=== PATIENT | female | born 1995 | race Caucasian/White ===

== ENCOUNTER 2024-11-14 11:37 | Outpatient (AMB) | payer BC, SELFPAY ==
[2024-11-14 11:45] VITALS: BP 115/72; PULSE 81; RESP 16; TEMP 36.2; O2SAT 99; BMI 30.4
--- NOTE | 2024-11-14 11:45 | OBCLNT_ITS ---
Vital Signs 11/14/24 11:45 Height 1.57 m Height Method Stated Weight 75.466 kg Weight Measurement Method Standing Scale BMI 30.4 BP 115/72 Blood Pressure Source Automatic Cuff Blood Pressure Location Left Upper Arm Position Sitting Respiration 16 Pulse 81 Pulse Source Monitor Temp 97.2 F Temp Source Oral Pulse Oximetry (%) 99 Oxygen Delivery Method Room Air Allergies/Home Meds Allergies & Medications Allergies No Known Allergies Allergy (Verified 11/14/24 11:47) Medication Reconciliation No Known Home Medications 11/14/24 [History Confirmed 11/14/24] Intake Visit Data Collection New Patient or Established: New Patient (never been to [facility]) Reason for Visit:: New OB visit Seen by Clinical Staff ONLY (RN/MA): No Holistic Health Practitioner Required: No Do You Feel Safe at Home: Yes Authorities Contacted: N/A PCP or OBGYN visit in last 3 months: Yes Hx Now: Yes Are you currently on any form of Control: No Pain Present Currently: No Pain Scale Used: Licona-Bernal/Numerical Pain scale:: 0 Smoking Status Smoking Status: Never smoker Questionnaires Covid-19 Vaccine Questionnaire Has patient been vacinated for Covid-19 Have you been vacinated for Covid-19: Yes PHQ-9 PHQ-2 Over the last 2 weeks, how often have you been bothered by any of the following problems? 1. Little interest or pleasure in doing things: not at all 2. Feeling down, depressed, or hopeless: not at all Total score: 0 PHQ-9 3. Trouble falling or staying asleep, or sleeping too much: Not at all 4. Feeling tired or having little energy: Not at all 5. Poor appetite or overeating: Not at all 6. Feeling bad about yourself - or that you are a failure or have let yourself or your family down: Not at all 7. Trouble concentrating on things, such as reading the newspaper or watching television: Not at all 8. Moving or speaking so slowly that other people could have noticed? - Or the opposite - being so fidgety or restless that you have been moving around a lot more than usual: not at all 9. Thoughts that you would be better off or of hurting yourself in some way: Not at all Total score: 0 If you checked off any problems, how difficult have these problems made it for you to do your work, take care of things at home, or get along with other people?: not difficult at all Source: Developed by Drs. Murphy Mcelroy, Vera Flynn, Sanju Porter and colleagues, with an educational chaya from [employer]. Depression screen completed yes Social History Living Situation History Marital Status: Lives With: Family Housing: House Tobacco History Smoking Status: Never smoker Alcohol History Alcohol Intake: Never Domestic Abuse History Do You Feel Safe at Home: Yes Past Medical History Past Medical History Have you ever been diagnosed with any of the following: Neurological Problems Seizures: No Epilepsy: No Migraine: No Cardiology Problems Cardiac Arrhythmia: No Heart Murmur: No Deep Vein Thrombosis: No Hypertension: No Respiratory Problems Asthma: No Pulmonary Embolism: No Stomache/Intestinal Problems Celiac Disease: No Gall Bladder Disease: No Irritable Bowel: No Gastroesophageal Reflux Disease: No Genital/Urinary Problems Renal Disease: No Kidney Stones: No Reproductive Problems Endometriosis: No Fibroids: No Genital Herpes: No Gonorrhea: No Pelvic Inflammatory Disease: No Polycystic Ovarian Syndrome: No Previous Pregnancies: Yes (CS x 3 in the past.) Musculoskeletal Problems Arthritis: No Rheumatoid Arthritis: No Head,Eye,Nose,Throat Problems Glaucoma: No Endocrine Problems Diabetes Mellitus Type 2: No Hyperthyroidism: No Hypothyroidism: No Systemic Lupus Erythematosus: No Blood Problems Anemia: No Psychologic Problems Depression: No Anxiety: No Attention Deficit Disorder: No Other Problems Hospitalization: Yes (For childbirth x 3) Autoimmune Disease: No Blood Transfusions: No Surgical History Appendectomy: No Bariatric Surgery: No Additional Surgical History: CS x 3 in past History of Present Illness HPI Narrative Patient is a 29-year-old -0-0-3 history of vaginal delivery x 3 in the past presents for a new OB appointment she is 6 to 7 weeks with a due date 07/03/2025. She has 3 children at home. Her son Binh is 16, her daughter Radha is 8 and her youngest daughter is 3 she denies any problems this no complications with her other deliveries. She she used to be a patient of mine in [place]. OB Initial Visit Menstrual History Menstrual reliability: definite Flow: normal Menstrual regularity: regular Monthly: Yes Age at menarche: 10 On control pills at conception: No Associated symptoms (LMP): Reports fatigue and breast tenderness OB History : 4 Para: 3 Hx # Pregnancies: 0 Hx Total # of Abortions (Spontaneous & Elective): 0 # of Living Children: 3 Delivery History 1st : Child's name: Jacquse date: 12/11/08 sex: male Gestational age at delivery (weeks): 40 Delivery type: weight (lbs): 3175.147 g History of depression before or after : No 2nd : Child's name: Jenna date: 11/20/16 sex: female Gestational age at delivery (weeks): 39 Delivery type: weight (lbs): 3628.739 g History of depression before or after : No 3rd : date: 08/12/21 sex: female Gestational age at delivery (weeks): 39 Delivery type: weight (lbs): 3175.147 g History of depression before or after : No Infection History & Risk Evaluation History of STDs: none HIV risk evaluation: low risk Hepatitis B risk evaluation: low risk Patient or partner has history of Genital Herpes: No Varicella/chicken pox status: immunized Genetic Screening & History Genetic Screening/Teratology Counseling - Includes patient, baby's father, or anyone in either family with: 1. Patient's age 35 years or older as of estimated date of delivery: No 2. Thalassemia (Saudi Arabian, South Korean, Mediterranean, or Background); MCV less than 80: No 3. Neural Tube Defect (Meningomyelocele, Spina Bifida, or Anencephaly): No 4. Congenital Heart Defect: No 5. Down Syndrome: No 6. Tip-Sachs (Ashkenazi Jehovah'S Witness, Cajun, Romanian Honduran): No 7. Omayra Disease (Ashkenazi Jehovah'S Witness): No 8. Familial Dysautonomia (Ashkenazi Jehovah'S Witness): No 9. Sickle Cell Disease or Trait (): No 10. Hemophilia or other blood disorders: No 11. Muscular Dystrophy: No 12. Cystic Fibrosis: No 13. [place]'s Chorea: No 14. Mental Retardation/Autism: No 15. Other inherited genetic or chromosomal disorder: No 16. Maternal Metabolic Disorder (EG,TYPE 1 Diabetes, PKU): No 17. Patient or baby's father had a child with defects not listed above: No 18. Recurrent loss or a stillbirth: No 19. Medications (including supplements, vitamins, herbs or otc drugs)/illicit/recreational drugs/alcohol since last menstrual period: No 20. Any other: No Infection History 1. Live with someone with TB or exposed to TB: No 2. Rash or viral illness since last menstrual period: No 3. Hepatitis B,C: No Other (see comments) Source: [employer] Review of Systems Review of Systems Narrative Review of Systems: Patient feels fatigue and breast tenderness no severe nausea no vaginal bleeding Systems Reviewed: All systems reviewed, normal except as documented Constitutional Constitutional: Reports fatigue Endocrine Endocrine: Reports fatigue Exam General Limitations: no limitations General Appearance: alert, in no apparent distress, comfortable, cooperative and well groomed Neck Neck exam: Present normal inspection, full ROM and trachea midline Chest Chest inspection: Present normal inspection and symmetric chest wall rise Resp Respiratory exam: Present normal lung sounds bilaterally Card Cardiovascular exam: Present regular rate, normal rhythm and normal heart sounds Abdominal Abdominal exam: Present soft and normal bowel sounds Extremities Extremities exam: Present normal inspection and full ROM Psych Psychiatric exam: Present normal affect and normal mood Skin Skin exam: Present warm, dry, intact and normal color Assessment & Plan Diagnosis / Problem List (1) : Status: Acute Qualifiers: Weeks of gestation: less than 8 weeks Qualified Code(s): Z3A.01 - Less than 8 weeks gestation of (2) Previous delivery affecting , antepartum: Status: Acute Plan: Repeat at 38 to 39 weeks consider tubal ligation Additional Plan Follow Up: 4 Weeks 4 Weeks Office Procedures OB Clinic LOC & Office Proc's Nursing/Assessment Patient Status: Initial/New Patient OB Clinic Nursing Assessment: BP Monitoring, Medication Reconciliation, Update PMH in EMR and Vital Signs OB Clinic Coordination of Care: Consent,records obtained, informed consent, Education Simp Pt/Fam, Lab and Imaging orders and Staff clarify orders New Patient Charge New Patient Point Assignment: [id number] New Patient Point Charge: SENIOR SHIPPING CLERK Level 3 ([id number]) Bedside Ultrasounds US Transvaginal at bedside: Yes (Transvaginal ultrasound performed CRL 1.15 cm. +FHTS EDC 07/01/25)
== END 2024-11-14 12:16 | disposition home or self-care (01) ==
LOC: HODSOBC 11:37
PROVIDERS: Supervising Provider Obstetrics & Gynecology; Visit Provider Obstetrics & Gynecology
DX: O09.291 Supervision of pregnancy with other poor reproductive or obstetric history, first trimester (principal); O34.219 Maternal care for unspecified type scar from previous cesarean delivery; Z3A.01 Less than 8 weeks gestation of pregnancy
CPT/HCPCS: 76817; 99203; G0463

== ENCOUNTER 2024-12-14 08:55 | Outpatient (AMB) | payer BC, SELFPAY ==
--- NOTE | 2024-12-14 08:56 | OBCLNT_ITS ---
Vital Signs 12/14/24 09:03 Height 1.57 m Height Method Measured Weight 75.013 kg Weight Measurement Method Standing Scale BMI 30.4 BP 119/82 Blood Pressure Source Automatic Cuff Blood Pressure Location Left Upper Arm Position Sitting Respiration 16 Pulse 87 Pulse Source Monitor Temp 97.9 F Temp Source Oral Pulse Oximetry (%) 99 Oxygen Delivery Method Room Air Allergies/Home Meds Allergies & Medications Allergies No Known Allergies Allergy (Verified 12/14/24 09:04) Medication Reconciliation No Known Home Medications 11/14/24 [History Confirmed 12/14/24] Intake Visit Data Collection New Patient or Established: Established Patient (seen at [facility] within 3 years) Reason for Visit:: care Seen by Clinical Staff ONLY (RN/MA): No Claims Adjuster Supervisor Required: No Do You Feel Safe at Home: Yes Authorities Contacted: N/A PCP or OBGYN visit in last 3 months: Yes Hx Now: Yes Are you currently on any form of Control: No Last menstrual period: 09/24/24 Pain Present Currently: No Pain Scale Used: Licona-Bernal/Numerical Pain scale:: 0 Smoking Status Smoking Status: Never smoker Questionnaires Covid-19 Vaccine Questionnaire Has patient been vacinated for Covid-19 Have you been vacinated for Covid-19: Yes PHQ-9 PHQ-2 Over the last 2 weeks, how often have you been bothered by any of the following problems? 1. Little interest or pleasure in doing things: not at all 2. Feeling down, depressed, or hopeless: not at all Total score: 0 PHQ-9 3. Trouble falling or staying asleep, or sleeping too much: Not at all 4. Feeling tired or having little energy: Not at all 5. Poor appetite or overeating: Not at all 6. Feeling bad about yourself - or that you are a failure or have let yourself or your family down: Not at all 7. Trouble concentrating on things, such as reading the newspaper or watching television: Not at all 8. Moving or speaking so slowly that other people could have noticed? - Or the opposite - being so fidgety or restless that you have been moving around a lot more than usual: not at all 9. Thoughts that you would be better off or of hurting yourself in some way: Not at all Total score: 0 Source: Developed by Drs. Murphy Mcelroy, Vera Flynn, Sanju Porter and colleagues, with an educational chaya from [employer]. Depression screen completed yes Social History Living Situation History Lives With: Family Housing: House Tobacco History Smoking Status: Never smoker Alcohol History Alcohol Intake: Never Domestic Abuse History Do You Feel Safe at Home: Yes Past Medical History Past Medical History Have you ever been diagnosed with any of the following: Neurological Problems Seizures: No Epilepsy: No Migraine: No Cardiology Problems Cardiac Arrhythmia: No Heart Murmur: No Deep Vein Thrombosis: No Hypertension: No Respiratory Problems Asthma: No Pulmonary Embolism: No Pulmonary Edema: No Stomache/Intestinal Problems Celiac Disease: No Gall Bladder Disease: No Irritable Bowel: No Gastroesophageal Reflux Disease: No Genital/Urinary Problems Renal Disease: No Kidney Stones: No Reproductive Problems Endometriosis: No Fibroids: No Genital Herpes: No Gonorrhea: No Pelvic Inflammatory Disease: No Polycystic Ovarian Syndrome: No Previous Pregnancies: Yes (CS x 3 in the past.) Musculoskeletal Problems Arthritis: No Rheumatoid Arthritis: No Head,Eye,Nose,Throat Problems Glaucoma: No Endocrine Problems Diabetes Mellitus Type 2: No Hyperthyroidism: No Hypothyroidism: No Systemic Lupus Erythematosus: No Blood Problems Anemia: No Psychologic Problems Depression: No Anxiety: No Attention Deficit Disorder: No Other Problems Hospitalization: Yes (For childbirth x 3) Blood Transfusions: No Surgical History Appendectomy: No Bariatric Surgery: No OB Ultrasound Indication Indication: Size, dates, spotting and viability OB Ultrasound Ultrasound technique: transvaginal Gestational sac assessment: Presence, location, size, shape: Live intrauterine crown-rump length of 5.15 cm corresponding 11 weeks 6 days. Embryo/ Assessment 1: Cardiac activity confirmation: Yes Manderson-rump length (cm): 5.15 Visit OB Visit Log OB Flowsheet Initial Weight: 75.5 kg Date -?-?-?-?-?-?-?-?-?-?-?-?- EGA Weight Edema CTX Effacement BP Fundal ht Pres Dilation Effacement Station Visit Note Alb Glu FHR Mov 12/14/24 -?-?-?-?-?-?-?-?-?-?-?-?- 11w 4d 75.013 kg (-487.162 g) 119/82 12 Offered N IPT will have to authorize Offered NIPT will have to au thorize first trimester labs drawn with Dr. Joseph in [place] not available at visit. Offered NIPT will have to elizabeth mayen first trimester labs drawn with Dr. Rojas in [place] not available at visit. absent PATRIC Calculator Estimated Delivery Date Method Current WG Current Estimate 07/01/25 Ultrasound #1 11w 4d Other Estimates 07/01/25 LMP (Certain) 11w 4d Expected Delivery Route/Plan Patient has history of x 3. For repeat at 39 weeks. Consider BTL. Notes Visit Date: 12/14/24 Last Updated by: Vane Florian (OB Clinic)MD Offered NIPT. Will authorize. Patient is having some back pain and spotting. Ultrasound transvaginal performed today. Labs from Dr. Rojas in [place] pending. Not available at the time of visit. Assessment & Plan Diagnosis / Problem List (1) Previous delivery affecting , antepartum: Status: Acute Assessment and Plan: Patient is 11-1/2 weeks . Authorized for NIPT. She signed a release for records from Dr. Rojas at [place] for labs. Schedule repeat C- section at 39 weeks. (2) : Status: Acute Qualifiers: Weeks of gestation: less than 8 weeks Qualified Code(s): Z3A.01 - Less than 8 weeks gestation of Office Procedures OB Clinic LOC & Office Proc's Nursing/Assessment Patient Status: Established Patient OB Clinic Nursing Assessment: Medication Reconciliation, Update PMH in EMR and Vital Signs OB Clinic Coordination of Care: Complex Care and Chronic Disease 1-5, Consent,records obtained, informed consent, Education Simp Pt/Fam and Staff clarify orders Special Needs: Heart tones Miscellaneous Interventions: Blood/Urine Collection Established Patient Charge Established Patient Point Assignment: 145 Established Patient Point Charge: EP Level 4 (120-155) Bedside Ultrasounds US Transabdominal >14 weeks at bedside: Yes
[2024-12-14 09:03] VITALS: BP 119/82; PULSE 87; RESP 16; TEMP 36.6; O2SAT 99; BMI 30.4
== END 2024-12-14 09:44 | disposition home or self-care (01) ==
LOC: HODSOBC 08:55
PROVIDERS: Supervising Provider Obstetrics & Gynecology; Visit Provider Obstetrics & Gynecology
DX: O09.291 Supervision of pregnancy with other poor reproductive or obstetric history, first trimester (principal); O34.219 Maternal care for unspecified type scar from previous cesarean delivery; Z3A.11 11 weeks gestation of pregnancy; O26.851 Spotting complicating pregnancy, first trimester; O99.891 Other specified diseases and conditions complicating pregnancy; M54.9 Dorsalgia, unspecified
CPT/HCPCS: 76805; 99214; G0463

== ENCOUNTER → 2024-12-19 | Outpatient (CLI) | payer BC, SELFPAY ==
[2024-12-19 18:07] LABS: Basophils % (Auto) 0 % (0-2.5); Eosinophils # (Auto) 0.1 Thou/mm3 (0.0-0.5); Eosinophils % (Auto) 2 % (0-10); Hematocrit 37.4 % (36.0-46.0); Hemoglobin 13.1 g/dL (12.0-16.0); Immature Granulocytes % (Auto) 0 % (0-0); Immature Granulocytes Auto 0.02 Thou/mm3 (0.00-0.00); Lymphocytes # (Auto) 1.7 Thou/mm3 (1.0-4.8); Lymphocytes % (Auto) 27 % (10-50); Mean Corpuscular Hemoglobin 31.9 pg (25.0-35.0); Mean Corpuscular Volume 91 fL (80-100); Monocytes # (Auto) 0.3 Thou/mm3 (0.0-0.8); Monocytes % (Auto) 6 % (0-12); Neutrophils # (Auto) 3.9 Thou/mm3 (1.8-7.7); Neutrophils % (Auto) 65 % (37-80); Nucleated Red Blood Cell % 0 /100 WBC (0); Platelet Count 224 Thou/mm3 (140-440); RDW Standard Deviation 41.7 fL (36.4-46.3); Red Blood Count 4.11 Miln/mm3 (4.00-5.20); White Blood Count 6.1 Thou/mm3 (3.6-11.0)
[2024-12-19 18:21] LABS: Thyroid Stimulating Hormone 1.54 uIU/mL (0.55-4.78)
== END | disposition home or self-care (01) ==
PROVIDERS: Referring Provider Obstetrics & Gynecology; Visit Provider Obstetrics & Gynecology
DX: O99.019 Anemia complicating pregnancy, unspecified trimester (principal); Z3A.01 Less than 8 weeks gestation of pregnancy; R53.83 Other fatigue
CPT/HCPCS: 36415; 84443; 85025

== ENCOUNTER 2025-01-14 09:26 | Outpatient (AMB) | payer BC, SELFPAY ==
[2025-01-14 09:55] VITALS: BP 111/73; PULSE 79; RESP 16; TEMP 36.4; O2SAT 99; BMI 30.7
--- NOTE | 2025-01-14 09:57 | OBCLNT_ITS ---
Vital Signs 01/14/25 09:55 01/14/25 09:58 Height 1.57 m Height Method Stated Weight 75.807 kg Weight Measurement Method Standing Scale BMI 30.7 BP 111/73 111/73 Blood Pressure Source Automatic Cuff Blood Pressure Location Right Upper Arm Position Sitting Respiration 16 16 Pulse 79 79 Pulse Source Monitor Temp 97.6 F 97.6 F Temp Source Oral Pulse Oximetry (%) 99 99 Oxygen Delivery Method Room Air Allergies/Home Meds Allergies & Medications Allergies No Known Allergies Allergy (Verified 01/14/25 09:57) Medication Reconciliation No Known Home Medications 11/14/24 [History Confirmed 01/14/25] Intake Visit Data Collection New Patient or Established: Established Patient (seen at [facility] within 3 years) Reason for Visit:: CARE Seen by Clinical Staff ONLY (RN/MA): No Cigarette And Filter Chief Inspector Required: No Do You Feel Safe at Home: Yes Authorities Contacted: N/A PCP or OBGYN visit in last 3 months: Yes Hx Now: Yes Are you currently on any form of Control: No Pain Present Currently: No Pain Scale Used: Licona-Bernal/Numerical Pain scale:: 0 Smoking Status Smoking Status: Never smoker Questionnaires Covid-19 Vaccine Questionnaire Has patient been vacinated for Covid-19 Have you been vacinated for Covid-19: No PHQ-9 PHQ-2 Over the last 2 weeks, how often have you been bothered by any of the following problems? 1. Little interest or pleasure in doing things: not at all 2. Feeling down, depressed, or hopeless: not at all Total score: 0 PHQ-9 3. Trouble falling or staying asleep, or sleeping too much: Not at all 4. Feeling tired or having little energy: Not at all 5. Poor appetite or overeating: Not at all 6. Feeling bad about yourself - or that you are a failure or have let yourself or your family down: Not at all 7. Trouble concentrating on things, such as reading the newspaper or watching television: Not at all 8. Moving or speaking so slowly that other people could have noticed? - Or the opposite - being so fidgety or restless that you have been moving around a lot more than usual: not at all 9. Thoughts that you would be better off or of hurting yourself in some way: Not at all Total score: 0 Source: Developed by Drs. Murphy Mcelroy, Vera Flynn, Sanju Porter and colleagues, with an educational chaya from [employer]. Depression screen completed yes Social History Living Situation History Marital Status: Lives With: Family Housing: House Housing Other:: Off work on disability. 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: Past Medical History Past Medical History: No Hx Hypothyroidism, No Hx Hyperthyroidism, No Hx Hypertension, No Hx Anemia, No Hx Renal Disease, No Hx Deep Vein Thrombosis, No Hx Diabetes Mellitus Type 2 and No Hx Polycystic Ovarian Syndrome Care OB Visit Log OB Flowsheet Initial Weight: 75.5 kg Date -?-?-?-?-?-?-?-?-?-?-?-?- EGA Weight Edema CTX Effacement BP Fundal ht Pres Dilation Effacement Station Visit Note Alb Glu FHR Mov 12/14/24 -?-?-?-?-?-?-?-?-?-?-?-?- 11w 4d 75.013 kg (-487.162 g) 119/82 12 Offered N IPT will have to authorize Offered NIPT will have to elizabeth mayen first trimester labs drawn with Dr. Joseph in [place] not available at visit. Offered NIPT will have to au adriize first trimester labs drawn with Dr. Rojas in [place] not available at visit. absent 01/14/25 -?-?-?-?-?-?-?-?-?-?-?-?- 16w 0d 75.807 kg (+306.625 g) 111/73 111/ 14 No vagina l bleeding patient is on pelvic rest at home. Desires NIPT. absent PATRIC Calculator Estimated Delivery Date Method Current WG Current Estimate 07/01/25 Ultrasound #1 16w 0d Other Estimates 07/01/25 LMP (Certain) 16w 0d Expected Delivery Route/Plan Patient has history of x 3. For repeat at 39 weeks Spouse to get vasectomy. Notes Visit Date: 01/14/25 Last Updated by: Vane Florian (OB Clinic)MD Patient will call on NIPT. Need labs from Dr. Zurita in [place]. Will authorize for level 2 ultrasound for history of x 4. Visit Date: 12/14/24 Last Updated by: Vane Florian (OB Clinic)MD Offered NIPT. Will authorize. Patient is having some back pain and spotting. Ultrasound transvaginal performed today. Labs from Dr. Rojas in [place] pending. Not available at the time of visit. Office Procedures OB Clinic LOC & Office Proc's Nursing/Assessment Patient Status: Established Patient OB Clinic Nursing Assessment: Medication Reconciliation, Update PMH in EMR and Vital Signs OB Clinic Coordination of Care: Complex Care and Chronic Disease 1-5, Consent,records obtained, informed consent, Education Simp Pt/Fam, Lab and Imaging orders, Results/Orders obtained and Staff clarify orders Special Needs: Heart tones Established Patient Charge Established Patient Point Assignment: 135 Established Patient Point Charge: EP Level 4 (120-155) Assessment & Plan Diagnosis / Problem List (1) Previous delivery affecting , antepartum: Status: Acute Assessment and Plan: Previous CS x 3 Spouse to get vasectomy (2) : Status: Acute Qualifiers: Weeks of gestation: 16 weeks Qualified Code(s): Z3A.16 - 16 weeks gestation of (3) Supervision of high risk in third trimester: Status: Acute
[2025-01-14 09:58] VITALS: BP 111/73; PULSE 79; RESP 16; TEMP 36.4; O2SAT 99
== END 2025-01-14 10:38 | disposition home or self-care (01) ==
LOC: HODSOBC 09:26
PROVIDERS: Supervising Provider Obstetrics & Gynecology; Visit Provider Obstetrics & Gynecology
DX: O09.292 Supervision of pregnancy with other poor reproductive or obstetric history, second trimester (principal); O09.892 Supervision of other high risk pregnancies, second trimester; Z3A.16 16 weeks gestation of pregnancy; O34.219 Maternal care for unspecified type scar from previous cesarean delivery; M54.9 Dorsalgia, unspecified; O99.891 Other specified diseases and conditions complicating pregnancy; O26.852 Spotting complicating pregnancy, second trimester
CPT/HCPCS: 99214; G0463

== ENCOUNTER 2025-02-13 09:26 | Outpatient (AMB) | payer BC, SELFPAY ==
[2025-02-13 09:56] VITALS: BP 115/75; PULSE 80; RESP 18; TEMP 36.2; O2SAT 98; BMI 31.5
--- NOTE | 2025-02-13 09:56 | OBCLNT_ITS ---
Vital Signs 02/13/25 09:56 Height 1.57 m Height Method Stated Weight 77.734 kg Weight Measurement Method Standing Scale BMI 31.5 BP 115/75 Blood Pressure Source Automatic Cuff Blood Pressure Location Left Upper Arm Position Sitting Respiration 18 Pulse 80 Pulse Source Monitor Temp 97.2 F Temp Source Oral Pulse Oximetry (%) 98 Oxygen Delivery Method Room Air Allergies/Home Meds Allergies & Medications Allergies No Known Allergies Allergy (Verified 02/13/25 09:56) Medication Reconciliation No Known Home Medications 11/14/24 [History Confirmed 02/13/25] Intake Visit Data Collection New Patient or Established: Established Patient (seen at [facility] within 3 years) Reason for Visit:: OBC Seen by Clinical Staff ONLY (RN/MA): No Shower Attendant Required: No Do You Feel Safe at Home: Yes Authorities Contacted: N/A PCP or OBGYN visit in last 3 months: Yes Date of Last PCP or OBGYN visit: 01/14/25 Hx Now: Yes Are you currently on any form of Control: No Pain Present Currently: No Pain Scale Used: Licona-Bernal/Numerical Pain scale:: 0 Smoking Status Smoking Status: Never smoker Questionnaires Covid-19 Vaccine Questionnaire Has patient been vacinated for Covid-19 Have you been vacinated for Covid-19: No PHQ-9 PHQ-2 Over the last 2 weeks, how often have you been bothered by any of the following problems? 1. Little interest or pleasure in doing things: not at all 2. Feeling down, depressed, or hopeless: not at all Total score: 0 PHQ-9 3. Trouble falling or staying asleep, or sleeping too much: Not at all 4. Feeling tired or having little energy: Not at all 5. Poor appetite or overeating: Not at all 6. Feeling bad about yourself - or that you are a failure or have let yourself or your family down: Not at all 7. Trouble concentrating on things, such as reading the newspaper or watching television: Not at all 8. Moving or speaking so slowly that other people could have noticed? - Or the opposite - being so fidgety or restless that you have been moving around a lot more than usual: not at all 9. Thoughts that you would be better off or of hurting yourself in some way: Not at all Total score: 0 If you checked off any problems, how difficult have these problems made it for you to do your work, take care of things at home, or get along with other people?: not difficult at all Source: Developed by Drs. Murphy Mcelroy, Vera Flynn, Sanju Porter and colleagues, with an educational chaya from [employer]. Depression screen completed yes Social History Living Situation History Marital Status: Lives With: Family Housing: House Housing Other:: Off work on disability. 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 History Past Medical History: No Hx Hypothyroidism, No Hx Hyperthyroidism, No Hx Hypertension, No Hx Anemia, No Hx Renal Disease, No Hx Deep Vein Thrombosis, No Hx Diabetes Mellitus Type 2 and No Hx Polycystic Ovarian Syndrome History of Present Illness HPI Narrative The patient is a 29-year-old history of x 3 presents for care Care OB Visit Log OB Flowsheet Initial Weight: 75.5 kg Date -?-?-?-?-?-?-?-?-?-?-?-?- EGA Weight BP Alb Glu CTX Pres Fundal ht FHR Mov Dilation Station Effacement Hx Notes Visit Note 12/14/24 -?-?-?-?-?-?-?-?-?-?-?-?- 11w 4d 75.013 kg (-487.162 g) 119/82 12 absent Offered NIPT will have to authorize Offered NIPT will have to elizabeth mayen first trimester labs drawn with Dr. Joseph in [place] not available at visit. Offered NIPT will have to au thorize first trimester labs drawn with Dr. Rojas in [place] not available at visit. 01/14/25 -?-?-?-?-?--?-?-?-?-?-?-?- 16w 0d 75.807 kg (+306.625 g) 111/73 111/ 14 absent No vaginal bleeding patient is on pelvic rest at home. Desires NIPT. 02/13/25 -?-?-?-?-?-?-?-?-?-?-?-?- 20w 2d 77.734 kg (+2234.392 g) 115/75 20 active No vaginal bleeding occasional back pain and pressure. Patient is off work on modified bedrest. NIPT was not covered by insurance. Patient is awaiting level [address] Amirah SPIVEY Calculator Estimated Delivery Date Method Current WG Current Estimate 07/01/25 Ultrasound #1 20w 2d Other Estimates 07/01/25 LMP (Certain) 20w 2d Expected Delivery Route/Plan Patient has history of x 3. For repeat at 38-39 weeks Spouse to get vasectomy. Specific Issue/Plans NIPT not covered. Level 2 ultrasound ordered. Notes Visit Date: 02/13/25 Last Updated by: Vane Florian ([facility])MD Still no notes from [facility] with Dr. Zurita. 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 She has not been called yet for level 2 ultrasound I will order this. Visit Date: 01/14/25 Last Updated by: Vane Florian ([facility])MD Patient will call on NIPT. Need labs from Dr. Zurita in [place]. Will authorize for level 2 ultrasound for history of x 4. Visit Date: 12/14/24 Last Updated by: Vane Florian ([facility])MD Offered NIPT. Will authorize. Patient is having some back pain and spotting. Ultrasound transvaginal performed today. Labs from Dr. Rojas in [place] pending. Not available at the time of visit. Office Procedures OB Clinic LOC & Office Proc's Nursing/Assessment Patient Status: Established Patient OB Clinic Nursing Assessment: Medication Reconciliation, Update PMH in EMR and Vital Signs OB Clinic Coordination of Care: Education Complex Pt/Fam, Consent,records obtained, informed consent, Lab and Imaging orders, Results/Orders obtained and Staff clarify orders Special Needs: Heart tones Established Patient Charge Established Patient Point Assignment: 115 Established Patient Point Charge: EP Level 3 (80-115)
== END 2025-02-13 10:15 | disposition home or self-care (01) ==
LOC: HODSOBC 09:26
PROVIDERS: PCP Obstetrics & Gynecology; Referring Provider Obstetrics & Gynecology; Supervising Provider Obstetrics & Gynecology; Visit Provider Obstetrics & Gynecology
DX: O09.292 Supervision of pregnancy with other poor reproductive or obstetric history, second trimester (principal); Z3A.20 20 weeks gestation of pregnancy; O34.219 Maternal care for unspecified type scar from previous cesarean delivery
CPT/HCPCS: 99213; G0463

== ENCOUNTER 2025-03-18 09:20 | Outpatient (AMB) | payer BC, SELFPAY ==
--- NOTE | 2025-03-18 09:21 | OBCLNT_ITS ---
Vital Signs 03/18/25 09:28 Height 1.57 m Height Method Stated Weight 79.605 kg Weight Measurement Method Standing Scale BMI 32.3 BP 112/62 Blood Pressure Source Automatic Cuff Blood Pressure Location Left Upper Arm Position Sitting Respiration 16 Pulse 82 Pulse Source Monitor Temp 97.6 F Temp Source Oral Pulse Oximetry (%) 99 Oxygen Delivery Method Room Air Allergies/Home Meds Allergies & Medications Allergies No Known Allergies Allergy (Verified 03/18/25 09:29) Medication Reconciliation No Known Home Medications 11/14/24 [History Confirmed 03/18/25] Intake Visit Data Collection New Patient or Established: Established Patient (seen at [facility] within 3 years) Reason for Visit:: CARE Seen by Clinical Staff ONLY (RN/MA): No Farmer Vegetable Required: No Do You Feel Safe at Home: Yes Authorities Contacted: N/A PCP or OBGYN visit in last 3 months: Yes Hx Now: Yes Are you currently on any form of Control: No Pain Present Currently: Yes Pain Location: Back Pain Scale Used: Licona-Bernal/Numerical Pain scale:: 6 Smoking Status Smoking Status: Never smoker Questionnaires Covid-19 Vaccine Questionnaire Has patient been vacinated for Covid-19 Have you been vacinated for Covid-19: Yes PHQ-9 PHQ-2 Over the last 2 weeks, how often have you been bothered by any of the following problems? 1. Little interest or pleasure in doing things: not at all 2. Feeling down, depressed, or hopeless: not at all Total score: 0 PHQ-9 3. Trouble falling or staying asleep, or sleeping too much: Not at all 4. Feeling tired or having little energy: Not at all 5. Poor appetite or overeating: Not at all 6. Feeling bad about yourself - or that you are a failure or have let yourself or your family down: Not at all 7. Trouble concentrating on things, such as reading the newspaper or watching television: Not at all 8. Moving or speaking so slowly that other people could have noticed? - Or the opposite - being so fidgety or restless that you have been moving around a lot more than usual: not at all 9. Thoughts that you would be better off or of hurting yourself in some way: Not at all Total score: 0 Source: Developed by Drs. Murphy Mcelroy, Vera Flynn, Sanju Porter and colleagues, with an educational chaya from [employer]. Depression screen completed yes Social History Living Situation History Lives With: Family Housing: House Housing Other:: Off work on disability. 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 Medical History Past Medical History: No Hx Hypothyroidism, No Hx Hyperthyroidism, No Hx Hypertension, No Hx Anemia, No Hx Renal Disease, No Hx Deep Vein Thrombosis, No Hx Diabetes Mellitus Type 2 and No Hx Polycystic Ovarian Syndrome Care OB Visit Log OB Flowsheet Initial Weight: 75.5 kg Date -?-?-?-?-?-?-?-?-?-?-?-?- EGA Weight BP Alb Glu CTX Pres Fundal ht FHR Mov Dilation Station Effacement Hx Notes Visit Note 12/14/24 -?-?-?-?-?-?-?-?-?-?-?-?- 11w 4d 75.013 kg (-487.162 g) 119/82 12 absent Offered NIPT will have to authorize Offered NIPT will have to elizabeth mayen first trimester labs drawn with Dr. Joseph in [place] not available at visit. Offered NIPT will have to elizabeth rushize first trimester labs drawn with Dr. Rojas in [place] not available at visit. 01/14/25 -?-?-?-?-?-?-?-?-?-?-?-?- 16w 0d 75.807 kg (+306.625 g) 111/73 111/73 14 absent No vaginal bleeding patient is on pelvic rest at home. Desires NIPT. 02/13/25 -?-?-?-?-?-?-?-?-?-?-?-?- 20w 2d 77.734 kg (+2234.392 g) 115/75 20 active No vaginal bleeding occasional back pain and pressure. Patient is off work on modified bedrest. NIPT was not covered by insurance. Patient is awaiting level [address] Macario 03/18/25 -?-?-?-?-?-?-?-?-?-?-?-?- 25w 0d 79.605 kg (+4105.461 g) 112/62 25 active Positive movement no contractions no loss of fluids. Level 2 ultra sound scheduled 26 March. PATRIC Calculator Estimated Delivery Date Method Current WG Current Estimate 07/01/25 Ultrasound #1 25w 0d Other Estimates 07/01/25 LMP (Certain) 25w 0d Expected Delivery Route/Plan Patient has history of x 3. For repeat at 38-39 weeks Spouse to get vasectomy. Specific Issue/Plans NIPT not covered. Level 2 ultrasound ordered. Notes Visit Date: 03/18/25 Last Updated by: Vane Florian ([facility])MD Have records from [facility]. Reviewed and on chart. All were done in October 2024.. O+ /antibody screen negative /cystic fibrosis screening negativ e/ TB test negative/ hemoglobin 13/ hep C negative/ hepatitis B surface antigen negative /rubella nonimmune RPR nonreactive /HIV negative/ hemoglobin A1c 5.2/1- hour glucose elevated /3-hour glucose normal/ GC chlamydia and trichomonas negative/drug screen negative Visit Date: 02/13/25 Last Updated by: Vane Florian ([facility])MD Still no notes from [facility] with Dr. Zurita. 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 She has not been called yet for level 2 ultrasound I will order this. Visit Date: 01/14/25 Last Updated by: Vane Florian ([facility])MD Patient will call on NIPT. Need labs from Dr. Zurita in [place]. Will authorize for level 2 ultrasound for history of x 4. Visit Date: 12/14/24 Last Updated by: Vane Florian ([facility])MD Offered NIPT. Will authorize. Patient is having some back pain and spotting. Ultrasound transvaginal performed today. Labs from Dr. Rojas in [place] pending. Not available at the time of visit. Office Procedures OB Clinic LOC & Office Proc's Nursing/Assessment Patient Status: Established Patient OB Clinic Nursing Assessment: Medication Reconciliation, Update PMH in EMR and Vital Signs OB Clinic Coordination of Care: Complex Care and Chronic Disease 1-5, Consent,records obtained, informed consent, Education Simp Pt/Fam, Lab and Imaging orders, Results/Orders obtained and Staff clarify orders Special Needs: Heart tones Established Patient Charge Established Patient Point Assignment: 135 Established Patient Point Charge: EP Level 4 (120-155)
[2025-03-18 09:28] VITALS: BP 112/62; PULSE 82; RESP 16; TEMP 36.4; O2SAT 99; BMI 32.3
== END 2025-03-18 10:04 | disposition home or self-care (01) ==
LOC: HODSOBC 09:20
PROVIDERS: PCP Obstetrics & Gynecology; Referring Provider Obstetrics & Gynecology; Supervising Provider Obstetrics & Gynecology; Visit Provider Obstetrics & Gynecology
DX: O09.292 Supervision of pregnancy with other poor reproductive or obstetric history, second trimester (principal); O34.219 Maternal care for unspecified type scar from previous cesarean delivery; Z3A.25 25 weeks gestation of pregnancy; Z78.9 Other specified health status
CPT/HCPCS: 99214; G0463

== ENCOUNTER → 2025-03-29 | Outpatient (CLI) | payer BC, SELFPAY ==
[2025-03-29 13:53] LABS: Basophils # (Auto) 0.0 Thou/mm3 (0.0-0.2); Basophils % (Auto) 0 % (0-2.5); Eosinophils # (Auto) 0.1 Thou/mm3 (0.0-0.5); Eosinophils % (Auto) 2 % (0-10); Hematocrit 34.1 % (36.0-46.0); Hemoglobin 12.0 g/dL (12.0-16.0); Immature Granulocytes Auto 0.03 Thou/mm3 (0.00-0.00); Lymphocytes # (Auto) 1.6 Thou/mm3 (1.0-4.8); Lymphocytes % (Auto) 24 % (10-50); Mean Corpuscular HGB Conc 35.2 g/dl (31.0-37.0); Mean Corpuscular Hemoglobin 33.4 pg (25.0-35.0); Mean Corpuscular Volume 95 fL (80-100); Monocytes # (Auto) 0.4 Thou/mm3 (0.0-0.8); Monocytes % (Auto) 6 % (0-12); Neutrophils # (Auto) 4.5 Thou/mm3 (1.8-7.7); Neutrophils % (Auto) 67 % (37-80); Nucleated Red Blood Cell # 0.00 Thou/mm3 (0.00-0.00); Nucleated Red Blood Cell % 0 /100 WBC (0); Platelet Count 207 Thou/mm3 (140-440); RDW Standard Deviation 46.8 fL (36.4-46.3); Red Blood Count 3.59 Miln/mm3 (4.00-5.20); White Blood Count 6.7 Thou/mm3 (3.6-11.0)
[2025-03-29 14:14] LABS: Alanine Aminotransferase 11 U/L (10-49); Albumin, Serum 3.7 gm/dL (3.5-5.0); Albumin/Globulin Ratio 1.6 (1.2-2.2); Alkaline Phosphatase 66 U/L (46-116); Anion Gap 12 (7-16); Aspartate Amino Transferase 15 U/L (0-34); BUN/Creatinine Ratio 10 Ratio (12-20); Bilirubin,Total 0.3 mg/dL (0.3-1.2); Blood Urea Nitrogen 5 mg/dL (9-23); Calcium 9.0 mg/dL (8.3-10.6); Calcium (Corrected) 9.2 mg/dL (8.5-10.1); Carbon Dioxide 24.4 mMol/L (20.0-31.0); Chloride 103 mMol/L (98-107); Creatinine (Component) 0.5 mg/dL (0.6-1.3); Globulin 2.3 gm/dL (2.3-3.5); Glucose 106 mg/dL (74-106); Osmolality,Calculated 274 (275-295); Potassium 3.9 mMol/L (3.4-5.1); Sodium 139 mMol/L (136-145); Total Protein 6.0 gm/dL (5.7-8.2); eGFR > 60 See Note
[2025-04-05 17:49] LABS: Chenodeoxycholic Acid* 1.1 umol/L (< OR = 3.9); Cholic Acid* <0.5 umol/L (< OR = 2.8); Deoxycholic Acid* <0.5 umol/L (< OR = 2.3)
[2025-04-08 14:35] LABS: Total Bile Acids <1.5 umol/L (< OR = 8.3)
== END | disposition home or self-care (01) ==
PROVIDERS: Referring Provider Obstetrics & Gynecology; Visit Provider Obstetrics & Gynecology
DX: O26.642 Intrahepatic cholestasis of pregnancy, second trimester (principal)
CPT/HCPCS: 36415; 80053; 83789; 85025

== ENCOUNTER 2025-04-08 08:26 | Outpatient (AMB) | payer BC, SELFPAY ==
[2025-04-08 08:35] VITALS: BP 109/69; PULSE 79; RESP 16; TEMP 36.3; O2SAT 99; BMI 33.3
--- NOTE | 2025-04-08 08:35 | AMB.OBVISIT ---
Vital Signs 04/08/25 08:35 Height 1.57 m Height Method Stated Weight 82.27 kg Weight Measurement Method Standing Scale BMI 33.3 BP 109/69 Blood Pressure Source Automatic Cuff Blood Pressure Location Left Upper Arm Position Sitting Respiration 16 Pulse 79 Pulse Source Monitor Temp 97.4 F Temp Source Oral Pulse Oximetry (%) 99 Oxygen Delivery Method Room Air Allergies/Home Meds Allergies & Medications Allergies No Known Allergies Allergy (Verified 04/08/25 08:36) Medication Reconciliation No Known Home Medications 11/14/24 [History Confirmed 04/08/25] Intake Visit Data Collection New Patient or Established: Established Patient (seen at [facility] within 3 years) Reason for Visit:: CARE Seen by Clinical Staff ONLY (RN/MA): No Stock Preparation Supervisor Required: No Do You Feel Safe at Home: Yes Authorities Contacted: N/A PCP or OBGYN visit in last 3 months: Yes Hx Now: Yes Are you currently on any form of Control: No Pain Present Currently: Yes Pain Location: Unable to identify (PELVIC PAIN) Pain Scale Used: Licona-Bernal/Numerical Pain scale:: 5 Smoking Status Smoking Status: Never smoker Questionnaires Covid-19 Vaccine Questionnaire Has patient been vacinated for Covid-19 Have you been vacinated for Covid-19: No PHQ-9 PHQ-2 Over the last 2 weeks, how often have you been bothered by any of the following problems? 1. Little interest or pleasure in doing things: not at all 2. Feeling down, depressed, or hopeless: not at all Total score: 0 PHQ-9 3. Trouble falling or staying asleep, or sleeping too much: Not at all 4. Feeling tired or having little energy: Not at all 5. Poor appetite or overeating: Not at all 6. Feeling bad about yourself - or that you are a failure or have let yourself or your family down: Not at all 7. Trouble concentrating on things, such as reading the newspaper or watching television: Not at all 8. Moving or speaking so slowly that other people could have noticed? - Or the opposite - being so fidgety or restless that you have been moving around a lot more than usual: not at all 9. Thoughts that you would be better off or of hurting yourself in some way: Not at all Total score: 0 Source: Developed by Drs. Murphy Mcelroy, Vera Flynn, Sanju Porter and colleagues, with an educational chaya from [employer]. Depression screen completed yes Social History Living Situation History Lives With: Family Housing: House Housing Other:: Off work on disability. 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 Joseph in [place] not available at visit. Offered NIPT will have to authorize first trimester labs drawn with Dr. Rojas in [place] not available at visit. 01/14/25 <del>?</del> 16w 0d 75.807 kg (+306.625 g) 111/73 111/73 14 absent No vaginal bleeding patient is on pelvic rest at home. Desires NIPT. 02/13/25 <del>?</del> 20w 2d 77.734 kg (+2234.392 g) 115/75 20 active No vaginal bleeding occasional back pain and pressure. Patient is off work on modified bedrest. NIPT was not covered by insurance. Patient is awaiting level [address] Macario 03/18/25 <del>?</del> 25w 0d 79.605 kg (+4105.461 g) 112/62 25 active Positive movement no contractions no loss of fluids. Level 2 ultrasound scheduled 26 March. 04/08/25 <del>?</del> 28w 0d 82.27 kg (+6770.316 g) 109/69 absent 32 active +FM, No UCs, No LOF Level II US WNL on chart, GCT ordered PATRIC Calculator Estimated Delivery Date Method Current WG Current Estimate 07/01/25 Ultrasound #1 28w 0d Other Estimates 07/01/25 LMP (Certain) 28w 0d Expected Delivery Route/Plan Patient has history of x 3. For repeat at 38-39 weeks Spouse to get vasectomy. Specific Issue/Plans NIPT not covered. Level 2 ultrasound ordered. Notes Visit Date: 04/08/25 Last Updated by: Vane Florian ([facility] Clinic)MD Level II US done and WNL. Visit Date: 03/18/25 Last Updated by: Vane Florian ([facility])MD Have records from [facility]. Reviewed and on chart. All were done in October 2024.. O+ /antibody screen negative /cystic fibrosis screening negative/ TB test negative/ hemoglobin 13/ hep C negative/ hepatitis B surface antigen negative /rubella nonimmune RPR nonreactive /HIV negative/ hemoglobin A1c 5.2/1-hour glucose elevated /3-hour glucose normal/ GC chlamydia and trichomonas negative/drug screen negative Visit Date: 02/13/25 Last Updated by: Vane Florian ([facility])MD Still no notes from [facility] with Dr. Zurita. 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 She has not been called yet for level 2 ultrasound I will order this. Visit Date: 01/14/25 Last Updated by: Vane Florian ([facility])MD Patient will call on NIPT. Need labs from Dr. Zurita in [place]. Will authorize for level 2 ultrasound for history of x 4. Visit Date: 12/14/24 Last Updated by: Vane Florian ([facility])MD Offered NIPT. Will authorize. Patient is having some back pain and spotting. Ultrasound transvaginal performed today. Labs from Dr. Rojas in [place] pending. Not available at the time of visit. Office Procedures OB Clinic LOC & Office Proc's Nursing/Assessment Patient Status: Established Patient OB Clinic Nursing Assessment: Medication Reconciliation, Update PMH in EMR and Vital Signs OB Clinic Coordination of Care: Complex Care and Chronic Disease 1-5, Consent,records obtained, informed consent, Education Simp Pt/Fam, 1 Ins Authorization, Lab and Imaging orders, Results/Orders obtained and Staff clarify orders Special Needs: Heart tones Established Patient Charge Established Patient Point Assignment: 150 Established Patient Point Charge: EP Level 4 (120-155) Assessment & Plan Diagnosis / Problem List (1) : Status: Acute Qualifiers: Weeks of gestation: 28 weeks Qualified Code(s): Z3A.28 - 28 weeks gestation of (2) Supervision of high risk in third trimester: Status: Acute (3) Previous delivery affecting , antepartum: Status: Acute Assessment and Plan: For CS # $ need date. 38-39 weeks. EDC 07/01/25
== END 2025-04-08 09:20 | disposition home or self-care (01) ==
LOC: HODSOBC 08:26
PROVIDERS: PCP Obstetrics & Gynecology; Referring Provider Obstetrics & Gynecology; Supervising Provider Obstetrics & Gynecology; Visit Provider Obstetrics & Gynecology
DX: O09.293 Supervision of pregnancy with other poor reproductive or obstetric history, third trimester (principal); O34.219 Maternal care for unspecified type scar from previous cesarean delivery; Z3A.28 28 weeks gestation of pregnancy
CPT/HCPCS: 99214; G0463

== ENCOUNTER → 2025-04-08 | Outpatient (CLI) | payer BC, SELFPAY ==
[2025-04-08 12:18] LABS: Basophils # (Auto) 0.0 Thou/mm3 (0.0-0.2); Basophils % (Auto) 0 % (0-2.5); Eosinophils # (Auto) 0.1 Thou/mm3 (0.0-0.5); Eosinophils % (Auto) 1 % (0-10); Hematocrit 35.2 % (36.0-46.0); Hemoglobin 12.2 g/dL (12.0-16.0); Immature Granulocytes Auto 0.04 Thou/mm3 (0.00-0.00); Lymphocytes # (Auto) 1.7 Thou/mm3 (1.0-4.8); Lymphocytes % (Auto) 29 % (10-50); Mean Corpuscular HGB Conc 34.7 g/dl (31.0-37.0); Mean Corpuscular Hemoglobin 32.9 pg (25.0-35.0); Mean Corpuscular Volume 95 fL (80-100); Monocytes # (Auto) 0.3 Thou/mm3 (0.0-0.8); Monocytes % (Auto) 5 % (0-12); Neutrophils # (Auto) 3.7 Thou/mm3 (1.8-7.7); Neutrophils % (Auto) 64 % (37-80); Nucleated Red Blood Cell # 0.00 Thou/mm3 (0.00-0.00); Nucleated Red Blood Cell % 0 /100 WBC (0); Platelet Count 198 Thou/mm3 (140-440); RDW Standard Deviation 47.6 fL (36.4-46.3); Red Blood Count 3.71 Miln/mm3 (4.00-5.20); White Blood Count 5.9 Thou/mm3 (3.6-11.0)
[2025-04-08 12:39] LABS: Glucose,1 Hour PP 50gm Dose 163 mg/dL (80-140)
[2025-04-08 12:44] LABS: Syphilis Nonreactive (Nonreactive)
== END | disposition home or self-care (01) ==
PROVIDERS: PCP Obstetrics & Gynecology; Referring Provider Obstetrics & Gynecology; Visit Provider Obstetrics & Gynecology
DX: Z34.82 Encounter for supervision of other normal pregnancy, second trimester (principal)
CPT/HCPCS: 36415; 82950; 85025; 86780

== ENCOUNTER 2025-04-19 10:00 | Outpatient (AMB) | payer BC, SELFPAY ==
[2025-04-19 10:23] VITALS: BP 115/69; PULSE 86; RESP 18; TEMP 36.5; O2SAT 98; BMI 33.5
--- NOTE | 2025-04-19 10:23 | OBCLNT_ITS ---
Vital Signs 04/19/25 10:23 Height 1.57 m Height Method Stated Weight 82.554 kg Weight Measurement Method Standing Scale BMI 33.5 BP 115/69 Blood Pressure Source Automatic Cuff Blood Pressure Location Left Upper Arm Position Sitting Respiration 18 Pulse 86 Pulse Source Monitor Temp 97.7 F Temp Source Oral Pulse Oximetry (%) 98 Oxygen Delivery Method Room Air Allergies/Home Meds Allergies & Medications Allergies No Known Allergies Allergy (Verified 04/19/25 10:24) Medication Reconciliation No Known Home Medications 11/14/24 [History Confirmed 04/19/25] Intake Visit Data Collection New Patient or Established: Established Patient (seen at [facility] within 3 years) Reason for Visit:: CARE Seen by Clinical Staff ONLY (RN/MA): No Resident Program Specialist Required: No Do You Feel Safe at Home: Yes Authorities Contacted: N/A PCP or OBGYN visit in last 3 months: Yes Hx Now: Yes Are you currently on any form of Control: No Pain Present Currently: No Pain Scale Used: Licona-Bernal/Numerical Pain scale:: 0 Smoking Status Smoking Status: Never smoker Questionnaires Covid-19 Vaccine Questionnaire Has patient been vacinated for Covid-19 Have you been vacinated for Covid-19: Yes PHQ-9 PHQ-2 Over the last 2 weeks, how often have you been bothered by any of the following problems? 1. Little interest or pleasure in doing things: not at all 2. Feeling down, depressed, or hopeless: not at all Total score: 0 PHQ-9 3. Trouble falling or staying asleep, or sleeping too much: Not at all 4. Feeling tired or having little energy: Not at all 5. Poor appetite or overeating: Not at all 6. Feeling bad about yourself - or that you are a failure or have let yourself or your family down: Not at all 7. Trouble concentrating on things, such as reading the newspaper or watching television: Not at all 8. Moving or speaking so slowly that other people could have noticed? - Or the opposite - being so fidgety or restless that you have been moving around a lot more than usual: not at all 9. Thoughts that you would be better off or of hurting yourself in some way: Not at all Total score: 0 Source: Developed by Drs. Murphy Mcelroy, Vera Flynn, Sanju Porter and colleagues, with an educational chaya from [employer] website. Depression screen completed yes Social History Living Situation History Lives With: Family Housing: House Housing Other:: Off work on disability. 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 Medical History Past Medical History: No Hx Hypothyroidism, No Hx Hyperthyroidism, No Hx Hypertension, No Hx Anemia, No Hx Renal Disease, No Hx Deep Vein Thrombosis, No Hx Diabetes Mellitus Type 2 and No Hx Polycystic Ovarian Syndrome Care OB Visit Log OB Flowsheet Initial Weight: 75.5 kg Date -?-?-?-?-?-?-?-?-?-?-?-?- EGA Weight BP Alb Glu CTX Pres Fundal ht FHR Mov Dilation Station Effacement Hx Notes Visit Note 12/14/24 -?-?-?-?-?-?-?-?-?-?-?-?- 11w 4d 75.013 kg (-487.162 g) 119/82 12 absent Offered NIPT will have to authorize Offered NIPT will have to [facility] first trimester labs drawn with Dr. Joseph in [place] not available at visit. Offered NIPT will have to elizabeth mayen first trimester labs drawn with Dr. Rojas in [place] not available at visit. 01/14/25 -?-?-?-?-?-?-?-?-?-?-?-?- 16w 0d 75.807 kg (+306.625 g) 111/73 111/73 14 absent No vaginal bleeding patient is on pelvic rest at home. Desires NIPT. 02/13/25 -?-?-?-?-?-?-?-?-?-?-?-?- 20w 2d 77.734 kg (+2234.392 g) 115/75 20 active No vaginal bleeding occasional back pain and pressure. Patient is off work on modified bedrest. NIPT was not covered by insurance. Patient is awaiting level [address] Macario 03/18/25 -?-?-?-?-?-?-?-?-?-?-?-?- 25w 0d 79.605 kg (+4105.461 g) 112/62 25 active Positive movement no contractions no loss of fluids. Level 2 ultra sound scheduled 26 March. 04/08/25 -?-?-?-?-?-?-?-?-?-?-?-?- 28w 0d 82.27 kg (+6770.316 g) 109/69 absent 32 active +FM, No UCs, No LOF Level II US WNL on chart, GCT ordered 04/19/25 -?-?-?-?-?-?-?-?-?-?-?-?- 29w 4d 82.554 kg (+7053.811 g) 115/69 absent 30 active Good movement. No contractions no bleeding no loss of fluids Failed glucose challenge test at 163. Ordered 3-hour GTT at [facility] in [place]. PATRIC Calculator Estimated Delivery Date Method Current WG Current Estimate 07/01/25 Ultrasound #1 29w 4d Other Estimates 07/01/25 LMP (Certain) 29w 4d Expected Delivery Route/Plan Patient has history of x 3. For repeat at 38-39 weeks Spouse to get vasectomy. Specific Issue/Plans NIPT not covered. Level 2 ultrasound ordered. Notes Visit Date: 04/19/25 Last Updated by: Vane Florian ([facility])MD Failed 1 hour glucose. 163. Ordered 3-hour GTT with CBC and RPR Visit Date: 04/08/25 Last Updated by: Vane Florian ([facility])MD Level II US done and WNL. Visit Date: 03/18/25 Last Updated by: Vane Florian ([facility])MD Have records from [facility]. Reviewed and on chart. All were done in October 2024.. O+ /antibody screen negative /cystic fibrosis screening negative/ TB test negative/ hemoglobin 13/ hep C negative/ hepatitis B surface antigen negative /rubella nonimmune RPR nonreactive /HIV negative/ hemoglobin A1c 5.2/1-hour glucose elevated /3-hour glucose normal/ GC chlamydia and trichomonas negative/drug screen negative Visit Date: 02/13/25 Last Updated by: Vane Florian ([facility])MD Still no notes from [facility] with Dr. Zurita. Patient will actually go drive there and order picker her records. She has not been called yet for level 2 ultrasound I will order this. Visit Date: 01/14/25 Last Updated by: Vane Florian ([facility])MD Patient will call on NIPT. Need labs from Dr. Zurita in [place]. Will authorize for level 2 ultrasound for history of x 4. Visit Date: 12/14/24 Last Updated by: Vane Florian ([facility])MD Offered NIPT. Will authorize. Patient is having some back pain and spotting. Ultrasound transvaginal performed today. Labs from Dr. Rojas in [place] pending. Not available at the time of visit. Office Procedures OB Clinic LOC & Office Proc's Nursing/Assessment Patient Status: Established Patient OB Clinic Nursing Assessment: Medication Reconciliation, Update PMH in EMR and Vital Signs OB Clinic Coordination of Care: Complex Care and Chronic Disease 1-5, Consent,records obtained, informed consent, Education Simp Pt/Fam, Lab and Imaging orders, Results/Orders obtained and Staff clarify orders Special Needs: Heart tones Established Patient Charge Established Patient Point Assignment: 135 Established Patient Point Charge: EP Level 4 (120-155)
== END 2025-04-19 10:34 | disposition home or self-care (01) ==
LOC: HODSOBC 10:00
PROVIDERS: Supervising Provider Obstetrics & Gynecology; Visit Provider Obstetrics & Gynecology
DX: O09.893 Supervision of other high risk pregnancies, third trimester (principal); O99.810 Abnormal glucose complicating pregnancy; O09.293 Supervision of pregnancy with other poor reproductive or obstetric history, third trimester; O34.219 Maternal care for unspecified type scar from previous cesarean delivery; Z3A.29 29 weeks gestation of pregnancy
CPT/HCPCS: 99214; G0463

== ENCOUNTER 2025-04-30 10:57 | Outpatient (AMB) | payer BC, SELFPAY ==
[2025-04-30 11:20] VITALS: BP 111/71; PULSE 94; RESP 16; TEMP 36.2; O2SAT 98; BMI 33.5
--- NOTE | 2025-04-30 11:20 | OBCLNT_ITS ---
Vital Signs 04/30/25 11:20 Height 1.57 m Height Method Stated Weight 82.667 kg Weight Measurement Method Standing Scale BMI 33.5 BP 111/71 Blood Pressure Source Automatic Cuff Blood Pressure Location Left Upper Arm Position Sitting Respiration 16 Pulse 94 Pulse Source Monitor Temp 97.2 F Temp Source Oral Pulse Oximetry (%) 98 Oxygen Delivery Method Room Air Allergies/Home Meds Allergies & Medications Allergies No Known Allergies Allergy (Verified 04/30/25 11:21) Medication Reconciliation No Known Home Medications 11/14/24 [History Confirmed 04/30/25] Intake Visit Data Collection New Patient or Established: Established Patient (seen at [facility] within 3 years) Reason for Visit:: OBC Seen by Clinical Staff ONLY (RN/MA): No Range Conservationist Required: No Do You Feel Safe at Home: Yes Authorities Contacted: N/A PCP or OBGYN visit in last 3 months: Yes Date of Last PCP or OBGYN visit: 04/19/25 Hx Now: Yes Are you currently on any form of Control: No Pain Present Currently: No Pain Scale Used: Licona-Bernal/Numerical Pain scale:: 0 Smoking Status Smoking Status: Never smoker Questionnaires Covid-19 Vaccine Questionnaire Has patient been vacinated for Covid-19 Have you been vacinated for Covid-19: No PHQ-9 PHQ-2 Over the last 2 weeks, how often have you been bothered by any of the following problems? 1. Little interest or pleasure in doing things: not at all 2. Feeling down, depressed, or hopeless: not at all Total score: 0 PHQ-9 3. Trouble falling or staying asleep, or sleeping too much: Not at all 4. Feeling tired or having little energy: Not at all 5. Poor appetite or overeating: Not at all 6. Feeling bad about yourself - or that you are a failure or have let yourself or your family down: Not at all 7. Trouble concentrating on things, such as reading the newspaper or watching television: Not at all 8. Moving or speaking so slowly that other people could have noticed? - Or the opposite - being so fidgety or restless that you have been moving around a lot more than usual: not at all 9. Thoughts that you would be better off or of hurting yourself in some way: Not at all Total score: 0 If you checked off any problems, how difficult have these problems made it for you to do your work, take care of things at home, or get along with other people?: not difficult at all Source: Developed by Drs. Murphy Mcelroy, Vera Flynn, Sanju Porter and colleagues, with an educational chaya from [employer]. Depression screen completed yes Social History Living Situation History Lives With: Family Housing: House Housing Other:: Off work on disability. 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 Joseph in [place] not available at visit. Offered NIPT will have to elizabeth mayen first trimester labs drawn with Dr. Rojas in [place] not available at visit. 01/14/25 -?-?-?-?-?-?-?-?-?-?-?-?- 16w 0d 75.807 kg (+306.625 g) 111/73 111/73 14 absent No vaginal bleeding patient is on pelvic rest at home. Desires NIPT. 02/13/25 -?-?-?-?-?-?-?-?-?-?-?--?- 20w 2d 77.734 kg (+2234.392 g) 115/75 20 active No vaginal bleeding occasional back pain and pressure. Patient is off work on modified bedrest. NIPT was not covered by insurance. Patient is awaiting level [address] Macario 03/18/25 -?-?-?-?-?-?-?-?-?-?-?-?- 25w 0d 79.605 kg (+4105.461 g) 112/62 25 active Positive movement no contractions no loss of fluids. Level 2 ultra sound scheduled 26 March. 04/08/25 -?-?-?-?-?-?-?-?-?-?-?-?- 28w 0d 82.27 kg (+6770.316 g) 109/69 absent 32 active +FM, No UCs, No LOF Level II US WNL on chart, GCT ordered 04/19/25 -?-?-?-?-?-?-?-?-?-?-?-?- 29w 4d 82.554 kg (+7053.811 g) 115/69 absent 30 active Good movement. No contractions no bleeding no loss of fluids Failed glucose challenge test at 163. Ordered 3-hour GTT at [facility] in [place]. 04/30/25 -?-?-?-?-?-?-?-?-?-?-?-?- 31w 1d 82.667 kg (+7167.209 g) 111/71 absent 32 active Good movement no contractions no loss of fluids Has not done 3 -hour test yet. Sees Dr. Macario in 1 week for follow-up. PATRIC Calculator Estimated Delivery Date Method Current WG Current Estimate 07/01/25 Ultrasound #1 31w 4d Other Estimates 07/01/25 LMP (Certain) 31w 4d Expected Delivery Route/Plan Patient has history of x 3. For repeat at 38-39 weeks Spouse to get vasectomy. Declines BTL. scheduled 06/21/2025 0730 Specific Issue/Plans NIPT not covered. Level 2 ultrasound ordered. Notes Visit Date: 04/30/25 Last Updated by: Vane Florian ([facility])MD Declines BTL. Visit Date: 04/19/25 Last Updated by: Vane Florian ([facility])MD Failed 1 hour glucose. 163. Ordered 3-hour GTT with CBC and RPR Visit Date: 04/08/25 Last Updated by: Vane Florian ([facility] Clinic)MD Level II US done and WNL. Visit Date: 03/18/25 Last Updated by: Vane Florian ([facility])MD Have records from [facility]. Reviewed and on chart. All were done in October 2024.. O+ /antibody screen negative /cystic fibrosis screening negative/ TB test negative/ hemoglobin 13/ hep C negative/ hepatitis B surface antigen negative /rubella nonimmune RPR nonreactive /HIV negative/ hemoglobin A1c 5.2/1-hour glucose elevated /3-hour glucose normal/ GC chlamydia and trichomonas negative/drug screen negative Visit Date: 02/13/25 Last Updated by: Vane Florian ([facility])MD Still no notes from [facility] with Dr. Zurita. Patient will actually go drive there and cone picker her records. She has not been called yet for level 2 ultrasound I will order this. Visit Date: 01/14/25 Last Updated by: Vane Florian ([facility])MD Patient will call on NIPT. Need labs from Dr. Zurita in [place]. Will authorize for level 2 ultrasound for history of x 4. Visit Date: 12/14/24 Last Updated by: Vane Florian ([facility])MD Offered NIPT. Will authorize. Patient is having some back pain and spotting. Ultrasound transvaginal performed today. Labs from Dr. Rojas in [place] pending. Not available at the time of visit. Office Procedures OB Clinic LOC & Office Proc's Nursing/Assessment Patient Status: Established Patient OB Clinic Nursing Assessment: Medication Reconciliation, Update PMH in EMR and Vital Signs OB Clinic Coordination of Care: Education Complex Pt/Fam, Consent,records obtained, informed consent, Lab and Imaging orders and Staff clarify orders Special Needs: Heart tones Established Patient Charge Established Patient Point Assignment: 110 Established Patient Point Charge: EP Level 3 (80-115) Assessment & Plan Diagnosis / Problem List (1) Supervision of high risk in third trimester: Status: Acute (2) Previous delivery affecting , antepartum: Status: Acute Plan: Repeat #4 scheduled 06/21 at 7:30 AM (3) : Status: Acute Qualifiers: Weeks of gestation: 31 weeks Qualified Code(s): Z3A.31 - 31 weeks gestation of
== END 2025-04-30 11:38 | disposition home or self-care (01) ==
LOC: HODSOBC 10:57
PROVIDERS: Supervising Provider Obstetrics & Gynecology; Visit Provider Obstetrics & Gynecology
DX: O09.293 Supervision of pregnancy with other poor reproductive or obstetric history, third trimester (principal); Z3A.31 31 weeks gestation of pregnancy
CPT/HCPCS: 99213; G0463

== ENCOUNTER 2025-05-20 14:53 | Outpatient (AMB) | payer BC, SELFPAY ==
[2025-05-20 15:09] VITALS: BP 118/72; PULSE 78; RESP 14; TEMP 36.4; O2SAT 99; BMI 33.9
--- NOTE | 2025-05-20 15:09 | OBCLNT_ITS ---
Vital Signs 05/20/25 15:09 Height 1.57 m Height Method Stated Weight 83.688 kg Weight Measurement Method Standing Scale BMI 33.9 BP 118/72 Blood Pressure Source Automatic Cuff Blood Pressure Location Left Upper Arm Position Sitting Respiration 14 Pulse 78 Pulse Source Monitor Temp 97.6 F Temp Source Oral Pulse Oximetry (%) 99 Oxygen Delivery Method Room Air Allergies/Home Meds Allergies & Medications Allergies No Known Allergies Allergy (Verified 05/20/25 15:10) Medication Reconciliation No Known Home Medications 11/14/24 [History Confirmed 05/20/25] Intake Visit Data Collection New Patient or Established: Established Patient (seen at [facility] within 3 years) Reason for Visit:: CARE Seen by Clinical Staff ONLY (RN/MA): No Marketing Underwriter Required: No Do You Feel Safe at Home: Yes Authorities Contacted: N/A PCP or OBGYN visit in last 3 months: Yes Hx Now: Yes Are you currently on any form of Control: No Pain Present Currently: Yes Pain Location: Back Pain scale:: 7 Smoking Status Smoking Status: Never smoker Questionnaires Covid-19 Vaccine Questionnaire Has patient been vacinated for Covid-19 Have you been vacinated for Covid-19: Yes PHQ-9 PHQ-2 Over the last 2 weeks, how often have you been bothered by any of the following problems? 1. Little interest or pleasure in doing things: not at all 2. Feeling down, depressed, or hopeless: not at all Total score: 0 PHQ-9 3. Trouble falling or staying asleep, or sleeping too much: Not at all 4. Feeling tired or having little energy: Not at all 5. Poor appetite or overeating: Not at all 6. Feeling bad about yourself - or that you are a failure or have let yourself or your family down: Not at all 7. Trouble concentrating on things, such as reading the newspaper or watching television: Not at all 8. Moving or speaking so slowly that other people could have noticed? - Or the opposite - being so fidgety or restless that you have been moving around a lot more than usual: not at all 9. Thoughts that you would be better off or of hurting yourself in some way: Not at all Total score: 0 Source: Developed by Drs. Murphy L. LilibethVera licea, Sanju Porter and colleagues, with an educational chaya from [employer]. Depression screen completed yes Social History Living Situation History Lives With: Family Housing: House Housing Other:: Off work on disability. 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 Joseph in [place] not available at visit. Offered NIPT will have to elizabeth mayen first trimester labs drawn with Dr. Rojas in [place] not available at visit. 01/14/25 -?-?-?-?-?-?-?-?-?-?-?-?- 16w 0d 75.807 kg (+306.625 g) 111/73 111/73 14 absent No vaginal bleeding patient is on pelvic rest at home. Desires NIPT. 02/13/25 -?-?-?-?-?-?-?-?-?-?-?-?- 20w 2d 77.734 kg (+2234.392 g) 115/75 20 active No vaginal bleeding occasional back pain and pressure. Patient is off work on modified bedrest. NIPT was not covered by insurance. Patient is awaiting level [address] Macario 03/18/25 -?-?-?-?-?-?-?-?-?-?-?-?- 25w 0d 79.605 kg (+4105.461 g) 112/62 25 active Positive movement no contractions no loss of fluids. Level 2 ultra sound scheduled 26 March. 04/08/25 -?-?-?-?-?-?-?-?-?-?-?-?- 28w 0d 82.27 kg (+6770.316 g) 109/69 absent 32 active +FM, No UCs, No LOF Level II US WNL on chart, GCT ordered 04/19/25 -?-?-?-?-?-?-?-?-?-?-?-?- 29w 4d 82.554 kg (+7053.811 g) 115/69 absent 30 active Good movement. No contractions no bleeding no loss of fluids Failed glucose challenge test at 163. Ordered 3-hour GTT at [facility] in [place]. 04/30/25 -?-?-?-?-?-?-?-?-?-?-?-?- 31w 1d 82.667 kg (+7167.209 g) 111/71 absent 32 active Good movement no contractions no loss of fluids Has not done 3 -hour test yet. Sees Dr. Macario in 1 week for follow-up. 05/20/25 -?--?-?-?-?-?-?-?-?-?-?-?- 34w 0d 83.688 kg (+8187.792 g) 118/72 PATRIC Calculator 2 Estimated Delivery Date Method Current WG Current Estimate 07/01/25 Ultrasound #1 34w 0d Other Estimates 07/01/25 LMP (Certain) 34w 0d Expected Delivery Route/Plan Patient has history of x 2. For repeat at 38-39 weeks Spouse to get vasectomy. Signed BTL papers scheduled 06/21/2025 0730 Specific Issue/Plans NIPT not covered. Level 2 ultrasound ordered. Notes Visit Date: 05/20/25 Last Updated by: Vane Florian ([facility])MD Three hour glucose normal 05/02/2025 fasting glucose 82\153\118\72 hemoglobin 11.9 RPR negative . The patient had a follow-up ultrasound with Dr. Macario 05/07/2025 which is on the chart :baby was vertex presentation EDC by that ultrasound 07/03/2025 EFW 1930 g 4 pounds 4 ounces in the 42nd percentile FENG 10.8 Visit Date: 04/30/25 Last Updated by: Vane Florian ([facility])MD Declines BTL. Visit Date: 04/19/25 Last Updated by: Vane OlivasOB Clinic)MD Failed 1 hour glucose. 163. Ordered 3-hour GTT with CBC and RPR Visit Date: 04/08/25 Last Updated by: Vane Florian ([facility])MD Level II US done and WNL. Visit Date: 03/18/25 Last Updated by: Vane Florian ([facility])MD Have records from [facility]. Reviewed and on chart. All were done in October 2024.. O+ /antibody screen negative /cystic fibrosis screening neg ative/ TB test negative/ hemoglobin 13/ hep C negative/ hepatitis B surface antigen negative /rubella nonimmune RPR nonreactive /HIV negative/ hemoglobin A1c 5.2/1-hour glucose elevated /3-hour glucose normal/ GC chlamydia and trichomonas negative/drug screen negative Visit Date: 02/13/25 Last Updated by: Vane Florian ([facility])MD Still no notes from [facility] with Dr. Zurita. 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 She has not been called yet for level 2 ultrasound I will order this. Visit Date: 01/14/25 Last Updated by: Vane Florian ([facility] Clinic)MD Patient will call on NIPT. Need labs from Dr. Zurita in [place]. Will authorize for level 2 ultrasound for history of x 4. Visit Date: 12/14/24 Last Updated by: Vane Florian ([facility] Clinic)MD Offered NIPT. Will authorize. Patient is having some back pain and spotting. Ultrasound transvaginal performed today. Labs from Dr. Rojas in [place] pending. Not available at the time of visit. Office Procedures OB Clinic LOC & Office Proc's Nursing/Assessment Patient Status: Established Patient OB Clinic Nursing Assessment: Medication Reconciliation, Update PMH in EMR and Vital Signs OB Clinic Coordination of Care: Complex Care and Chronic Disease 1-5, Consent,records obtained, informed consent, Education Simp Pt/Fam, Lab and Imaging orders, Results/Orders obtained and Staff clarify orders Special Needs: Heart tones Established Patient Charge Established Patient Point Assignment: 135 Established Patient Point Charge: EP Level 4 (120-155)
== END 2025-05-20 16:24 | disposition home or self-care (01) ==
LOC: HODSOBC 14:53
PROVIDERS: Supervising Provider Obstetrics & Gynecology; Visit Provider Obstetrics & Gynecology
DX: O09.293 Supervision of pregnancy with other poor reproductive or obstetric history, third trimester (principal); O34.219 Maternal care for unspecified type scar from previous cesarean delivery; Z3A.34 34 weeks gestation of pregnancy
CPT/HCPCS: 99214; G0463

== ENCOUNTER 2025-06-14 09:21 | Outpatient (AMB) | payer BC, SELFPAY ==
[2025-06-14 09:31] VITALS: BP 115/76; PULSE 98; RESP 18; TEMP 36.2; O2SAT 98; BMI 35.0
--- NOTE | 2025-06-14 09:31 | OBCLNT_ITS ---
Vital Signs 06/14/25 09:31 Height 1.57 m Height Method Stated Weight 86.353 kg Weight Measurement Method Standing Scale BMI 35.0 BP 115/76 Blood Pressure Source Automatic Cuff Blood Pressure Location Left Upper Arm Position Sitting Respiration 18 Pulse 98 Pulse Source Monitor Temp 97.2 F Temp Source Oral Pulse Oximetry (%) 98 Oxygen Delivery Method Room Air Allergies/Home Meds Allergies & Medications Allergies No Known Allergies Allergy (Verified 06/14/25 09:31) Medication Reconciliation vitamins no.159-iron fumarate 28 mg-folic acid 800 mcg tablet 1 tab PO DAILY #90 tabs 05/20/25 [Rx Confirmed 06/14/25] Intake Visit Data Collection New Patient or Established: Established Patient (seen at [facility] within 3 years) Reason for Visit:: OBC Seen by Clinical Staff ONLY (RN/MA): No Transport Tech Required: No Do You Feel Safe at Home: Yes Authorities Contacted: N/A PCP or OBGYN visit in last 3 months: Yes Date of Last PCP or OBGYN visit: 06/05/25 Hx Now: Yes Are you currently on any form of Control: No Pain Present Currently: No Pain Scale Used: Licona-Bernal/Numerical Pain scale:: 0 Smoking Status Smoking Status: Never smoker Questionnaires Covid-19 Vaccine Questionnaire Has patient been vacinated for Covid-19 Have you been vacinated for Covid-19: Yes PHQ-9 PHQ-2 Over the last 2 weeks, how often have you been bothered by any of the following problems? 1. Little interest or pleasure in doing things: not at all 2. Feeling down, depressed, or hopeless: not at all Total score: 0 PHQ-9 3. Trouble falling or staying asleep, or sleeping too much: Not at all 4. Feeling tired or having little energy: Not at all 5. Poor appetite or overeating: Not at all 6. Feeling bad about yourself - or that you are a failure or have let yourself or your family down: Not at all 7. Trouble concentrating on things, such as reading the newspaper or watching television: Not at all 8. Moving or speaking so slowly that other people could have noticed? - Or the opposite - being so fidgety or restless that you have been moving around a lot more than usual: not at all 9. Thoughts that you would be better off or of hurting yourself in some way: Not at all Total score: 0 If you checked off any problems, how difficult have these problems made it for you to do your work, take care of things at home, or get along with other people?: not difficult at all Source: Developed by Drs. Murphy Mcelroy, Vera Flynn, Sanju Porter and colleagues, with an educational chaya from Dr [employer]. Depression screen completed yes Social History Living Situation History Lives With: Family Housing: House Housing Other:: Off work on disability. 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: Past Medical History Past Medical History: No Hx Hypothyroidism, No Hx Hyperthyroidism, No Hx Hypertension, No Hx Anemia, No Hx Renal Disease, No Hx Deep Vein Thrombosis, No Hx Diabetes Mellitus Type 2 and No Hx Polycystic Ovarian Syndrome Review of Systems Review of Systems Systems Reviewed: All systems reviewed, normal except as documented Care OB Visit Log OB Flowsheet Initial Weight: 75.5 kg Date -?-?-?-?-?-?-?-?-?-?-?-?- EGA Weight BP Alb Glu CTX Pres Fundal ht FHR Mov Dilation Station Effacement Hx Notes Visit Note 12/14/24 -?-?-?-?-?-?-?-?-?-?-?-?- 11w 4d 75.013 kg (-487.162 g) 119/82 12 absent Offered NIPT will have to authorize Offered NIPT will have to elizabeth mayen first trimester labs drawn with Dr. Joseph in [place] not available at visit. Offered NIPT will have to elizabeth mayen first trimester labs drawn with Dr. Rojas in [place] not available at visit. 01/14/25 -?-?-?-?-?-?-?-?-?-?-?-?- 16w 0d 75.807 kg (+306.625 g) 111/73 111/73 14 absent No vaginal bleeding patient is on pelvic rest at home. Desires NIPT. 02/13/25 -?-?-?-?-?-?-?-?-?-?-?-?- 20w 2d 77.734 kg (+2234.392 g) 115/75 20 active No vaginal bleeding occasional back pain and pressure. Patient is off work on modified bedrest. NIPT was not covered by insurance. Patient is awaiting level [address] Macario 03/18/25 -?-?-?-?-?-?-?-?-?--?-?-?- 25w 0d 79.605 kg (+4105.461 g) 112/62 25 active Positive movement no contractions no loss of fluids. Level 2 ultra sound scheduled 26 March. 04/08/25 -?-?-?-?-?-?-?-?-?-?-?-?- 28w 0d 82.27 kg (+6770.316 g) 109/69 absent 32 active +FM, No UCs, No LOF Level II US WNL on chart, GCT ordered 04/19/25 -?-?-?-?-?-?-?-?-?-?-?-?- 29w 4d 82.554 kg (+7053.811 g) 115/69 absent 30 active Good movement. No contractions no bleeding no loss of fluids Failed glucose challenge test at 163. Ordered 3-hour GTT at [facility] in [place]. 04/30/25 -?-?-?-?-?-?-?-?-?-?-?-?- 31w 1d 82.667 kg (+7167.209 g) 111/71 absent 32 active Good movement no contractions no loss of fluids Has not done 3 -hour test yet. Sees Dr. Macario in 1 week for follow-up. 05/20/25 -?-?-?-?-?-?-?-?-?-?-?-?- 34w 0d 83.688 kg (+8187.792 g) 118/72 absent 34 136 active Good movement no contractions no loss of fluids 06/05/25 -?-?-?-?-?-?-?-?-?-?-?-?- 36w 2d 85.502 kg (+10.002 kg) 116/72 occasional 36 156 active Good movement no contractions or loss of fluids G roup B strep done 06/14/25 -?-?-?-?-?-?-?-?-?-?-?-?- 37w 4d 86.353 kg (+10.853 kg) 115/76 absent 37 151 active good movements GBS negative has previous 3 c section sna dscheduled for repeat LTCS with Dr Florian on 06/21/2025 / No BTL consent / spouse vasectomy PATRIC Calculator Estimated Delivery Date Method Current WG Current Estimate 07/01/25 Ultrasound #1 37w 5d Other Estimates 07/01/25 LMP (Certain) 37w 5d Expected Delivery Route/Plan Patient has history of x 2. For repeat at 38-39 weeks Spouse to get vasectomy. scheduled 06/21/2025 0730 Specific Issue/Plans NIPT not covered. Level 2 ultrasound ordered. Notes Visit Date: 06/05/25 Last Updated by: Vane Florian ([facility])MD Encouraged influenza RSV and Tdap vaccines. Visit Date: 05/20/25 Last Updated by: Vane Florian ([facility])MD Three hour glucose normal 05/02/2025 fasting glucose 82\153\118\72 hemoglobin 11.9 RPR negative . The patient had a follow-up ultrasound with Dr. Macario 05/07/2025 which is on the chart :baby was vertex presentation EDC by that ultrasound 07/03/2025 EFW 1930 g 4 pounds 4 ounces in the 42nd percentile FENG 10.8 Visit Date: 04/30/25 Last Updated by: Vane Florian ([facility])MD Declines BTL. Visit Date: 04/19/25 Last Updated by: Vane Florian ([facility])MD Failed 1 hour glucose. 163. Ordered 3-hour GTT with CBC and RPR Visit Date: 04/08/25 Last Updated by: Vane Florian ([facility])MD Level II US done and WNL. Visit Date: 03/18/25 Last Updated by: Vane Florian ([facility])MD Have records from [facility]. Reviewed and on chart. All were done in October 2024.. O+ /antibody screen negative /cystic fibrosis screening negative/ TB test negative/ hemoglobin 13/ hep C negative/ hepatitis B surface antigen negative /rubella nonimmune RPR nonreactive /HIV negative/ hemoglobin A1c 5.2/1-hour glucose elevated /3-hour glucose normal/ GC chlamydia and trichomonas negative/drug screen negative Visit Date: 02/13/25 Last Updated by: Vane Florian ([facility])MD Still no notes from [facility] with Dr. Zurita. 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 She has not been called yet for level 2 ultrasound I will order this. Visit Date: 01/14/25 Last Updated by: Vane Florian ([facility] Clinic)MD Patient will call on NIPT. Need labs from Dr. Zurita in [place]. Will authorize for level 2 ultrasound for history of x 4. Visit Date: 12/14/24 Last Updated by: Vane Florian ([facility])MD Offered NIPT. Will authorize. Patient is having some back pain and spotting. Ultrasound transvaginal performed today. Labs from Dr. Rojas in [place] pending. Not available at the time of visit. Office Procedures OBC Clinic LOC & Office Proc's Nursing/Assessment Patient Status: Established Patient OB Clinic Nursing Assessment: Medication Reconciliation, Update PMH in EMR and Vital Signs OB Clinic Coordination of Care: Consent,records obtained, informed consent, Education Simp Pt/Fam, Lab and Imaging orders, Results/Orders obtained and Staff clarify orders Special Needs: Heart tones Established Patient Charge Established Patient Point Assignment: 110 Established Patient Point Charge: EP Level 3 (80-115) Assessment & Plan Diagnosis / Problem List (1) Cholestasis during in second trimester: Status: Acute (2) Supervision of high risk in third trimester: Status: Acute Plan c sectio scheduled on 06/21/[address] Florian
== END 2025-06-14 10:15 | disposition home or self-care (01) ==
LOC: HODSOBC 09:21
PROVIDERS: Supervising Provider Obstetrics & Gynecology; Visit Provider Obstetrics & Gynecology
DX: O09.893 Supervision of other high risk pregnancies, third trimester (principal); O09.293 Supervision of pregnancy with other poor reproductive or obstetric history, third trimester; O34.211 Maternal care for low transverse scar from previous cesarean delivery; Z3A.37 37 weeks gestation of pregnancy
CPT/HCPCS: 99213; G0463

== ENCOUNTER 2025-06-21 05:39 | Inpatient (IN) | payer BC, SELFPAY ==
[2025-06-21] VITALS (16 sets, daily range): BP systolic 109–135; BP diastolic 68–85; PULSE 56–108; RESP 14–20; TEMP 36.4–36.6; O2SAT 97–100; BMI 34.6
[2025-06-21 06:40] LABS: Basophils # (Auto) 0.0 Thou/mm3 (0.0-0.2); Basophils % (Auto) 0 % (0-2.5); Eosinophils # (Auto) 0.0 Thou/mm3 (0.0-0.5); Eosinophils % (Auto) 1 % (0-10); Hematocrit 35.8 % (36.0-46.0); Hemoglobin 12.5 g/dL (12.0-16.0); Immature Granulocytes Auto 0.01 Thou/mm3 (0.00-0.00); Lymphocytes # (Auto) 1.9 Thou/mm3 (1.0-4.8); Lymphocytes % (Auto) 29 % (10-50); Mean Corpuscular HGB Conc 34.9 g/dl (31.0-37.0); Mean Corpuscular Hemoglobin 32.5 pg (25.0-35.0); Mean Corpuscular Volume 93 fL (80-100); Monocytes # (Auto) 0.4 Thou/mm3 (0.0-0.8); Monocytes % (Auto) 6 % (0-12); Neutrophils # (Auto) 4.3 Thou/mm3 (1.8-7.7); Neutrophils % (Auto) 65 % (37-80); Nucleated Red Blood Cell # 0.00 Thou/mm3 (0.00-0.00); Nucleated Red Blood Cell % 0 /100 WBC (0); Platelet Count 217 Thou/mm3 (140-440); RDW Standard Deviation 47.7 fL (36.4-46.3); Red Blood Count 3.85 Miln/mm3 (4.00-5.20); White Blood Count 6.7 Thou/mm3 (3.6-11.0)
[2025-06-21 07:37] LABS: Syphilis Nonreactive (Nonreactive)
--- NOTE | 2025-06-21 09:38 | ESHP_ITS ---
Documentation for date of: 06/21/25 OB Labor/Induct. HPI History of Present Illness Chief complaint: Patient presents for scheduled elective repeat section : 4 Term pregnancies: 3 pregnancies: 0 Living children: 3 History of Abortions: Spontaneous and Elective: 0 History of sections: Yes (X 3) History of : No Date of last menstrual period: 09/24/24 PATRIC: 07/01/25 Gestational Age (weeks): 38 Gestational Age (days): 4 Gestational age based on last menstrual period: 38 History of present illness: Patient is a 30-year-old -0-0-3 history of x 3 with all care uncomplicated with Dr. Bri Florian at the [facility] OB clinic. She presents today for scheduled elective repeat section. Of note patient declines tubal ligation. Her will pursue vasectomy. She is 38-4/7 weeks. The section is being done between 38 and 39 weeks for a history of section x 3. On the day of admission, she reports good movement, she denies vaginal bleeding or loss of fluids. She reports some irregular nonpainful uterine contractions. History of Present Dating criteria: LMP confirmed by 1st trimester US Adequate Care: Yes Ultrasounds: normal mid trimester US Obstetrical complications: none Medical complications: none Labs Maternal Blood Type: O Pos Labs: Negative: RPR, Hepatitis B, Rubella Titre (Rubella nonimmune), HIV, Chlamydia, Gonorrhea and Group Beta Strep and Unknown: Herpes Type 1, Herpes Type 2 and Covid-19 Past Medical History Surgical History SURGICAL: Positive Section (X 3) Past Medical History Comments PMH COMMENT: Patient has no significant past medical history including no asthma, hypertension, or diabetes. She has a history of x 3 in the past. Meds Home Medications and Allergies Allergies Allergy/AdvReac Type Severity Reaction Status Date / Time No Known Allergies Allergy Verified 06/14/25 09:31 OB Exam Physical Exam Vital signs: Pulse BP Pulse Ox 84 115/69 98 06/21/25 08:45 06/21/25 08:45 06/21/25 05:55 Constitutional Constitutional: no acute distress Routine Cardiovascular Exam Cardiovascular: Present RRR Routine Abdominal Exam Abdominal: Present soft and normoactive bowel sounds Detailed Labor and Delivery Exam Membranes: intact monitor accelerations: 15x15 monitor decelerations: None intermediate variability: Moderate (11-25) Contraction frequency (min): Irregular Tachysystole: No Contraction intensity: Mild Routine Extremities Exam Extremities: Present full ROM Routine Skin Exam Skin: Present intact, dry and warm Routine Psychiatric Exam Psychiatric: Present normal affect and normal thought process OB Results Labs 06/21/25 05:50 Labs: Short CBC 06/21/25 Range/Units 05:50 WBC 6.7 (3.6-11.0) Thou/mm3 Hgb 12.5 (12.0-16.0) g/dL Hct 35.8 L (36.0-46.0) % Plt Count 217 (140-440) Thou/mm3 OB Assessment & Plan Assessment and Plan (1) Supervision of high risk in third trimester: Status: Acute (2) Previous delivery affecting , antepartum: Status: Acute Assessment and plan: Patient has a history of x 3 in the past. She is consented for repeat low-transverse section. Her is at bedside. She understands the risk of surgery including the risk of bleeding, infection, blood transfusion, damage to bowel, bladder, blood vessels, or other organs. Possible . Prolonged hospital stay and further surgery should any complications occur. All questions were answered. All consents were signed. Of note, patient declines tubal ligation. Her will pursue vasectomy. She does have a keloid scar and requests Kenalog.
[2025-06-21] MEDS: ceFAZolin/D5W 2 GM IV 2 GM/100 ML BAG IV (09:48)
[2025-06-21] MEDS: FAMOTIDINE INJ 10 MG/ML VIAL 2 ML 20 MG IV (09:48)
[2025-06-21] MEDS: [UNRECOGNIZED DRUG - OTHER] IARTICULAR (10:48)
[2025-06-21] MEDS: KETOROLAC INJ 30 MG/ML VIAL IVP ×2 (12:54→17:48)
--- NOTE | 2025-06-21 13:08 | OBDSUM_ITS ---
Data ([place]) Data Hx Section: Yes (X 3) Maternal Blood Type: O Pos Rubella Titre: Negative RPR: Non-reactive Labs: Negative: RPR, Hepatitis B, HIV, Chlamydia, Gonorrhea and Group Beta Strep : 4 Term: 3 : 0 Livin Abortions: Spontaneous & Theraputic: 0 Delivery Data ([place]) Labor Data Induction/Augmentation Agent: None ROM date: 06/21/25 ROM time: 10:29 Amniotic membrane rupture type: Artificial Amniotic fluid description: Clear Delivery Data EDC: 07/01/25 EDC calculated by:: LMP/early US confirmation Date of arrival to unit: 06/21/25 Time of arrival to unit: 06:00 delivery date: 06/21/25 [place] delivery time: 10:29 Gestational age (weeks): 38 Gestational age (days): 4 Placenta delivery date: 06/21/25 Placenta delivery time: 10:30 Delivered by: Vane Florian ([facility]) Delivery nurse: gavino Murry nurse: debo Merchandising Coordinator at delivery: Yes Support person(s) at delivery: FOB Other staff at delivery: See intraop charting Delivery Method Delivery method: Low Transverse Presentation: Vertex position: OA Anesthesia Type Anesthesia Type: Spinal Delivery Room Medications Delivery room medications: Pitocin 20 u IV Placenta Placenta delivery description: Manual Removal Cord blood sent to lab: Yes cord blood collection: Cord Blood Type Episiotomy Episiotomy description: None EBL Estimated blood loss (ml): 400 Umbilical Cord cord description: 3 Vessels Additional Procedures See op report for further details Complications Complications: None Data (Cár[place]) Data order: 1 [place]'s gender: Male Identification band number: [id number] weight (gms): 3570 g Weight (pounds): 7 lbs and 13.9 ozs [place] length: 51.5 cm 1 minute: 7 5 minutes: 9
--- NOTE | 2025-06-21 13:12 | PD.GYNPROC ---
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 38-4/7 weeks. All care uncomplicated with Dr. Bri Florian. She presented for a scheduled elective repeat section. She declined tubal ligation. Pre-Op diagnosis: 1. IUP 38-4/7 weeks 2. Previous x 3 Post-Op diagnosis: Same Anesthesia type: Spinal Procedure description: After obtaining informed consent, the patient was brought back to the operating room, and spinal anesthesia was obtained. She was then prepped and draped in the dorsal supine position with a leftward tilt in a normal sterile fashion. A Cueva catheter was inserted into the patient's bladder. The patient was given 2 g of Ancef by anesthesia. A Pfannenstiel skin incision was made around the patient's scar and the patient's prior scar removed. The incision was carried down to the underlying fascia. The fascia was incised in the midline and the fascial incision extended laterally using Solis scissors. The superior aspect of the fascia was grasped with Griffin clamps, and the underlying rectus muscles dissected off using blunt and sharp dissection. This was repeated in the inferior aspect the incision. The rectus muscles were in the midline and the peritoneum was picked up and entered sharply with a scalpel. This was extended superiorly and inferiorly with good visualization of the bladder. The bladder blade was inserted and the uterus was incised in a low transverse fashion above the bladder reflection using a scalpel. The uterine incision was extended laterally using blunt dissection with the surgeon's fingers. The bag sim was ruptured and clear fluid was noted. The bladder blade was removed, and the infant was delivered atraumatically in a cephalic presentation. The baby was vigorous and crying immediately after . The cord was clamped and cut after waiting approximately one minute. The infant was handed off to the waiting pediatric staff. Cord gases were saved. Cord blood was collected. The placenta was then manually removed, and the uterus was exteriorized and cleared of all clots and debris. The uterine incision was repaired using 0 Monocryl in a running locked fashion. The uterus was returned to the patient's abdominal cavity and copious irrigation carried out with warm normal saline. The uterine incision was reexamined several times and noted to be hemostatic. After ensuring the rectus muscles were hemostatic, these were reapproximated in the midline using a running suture of 0 Monocryl. The fascia was closed with 0 Vicryl in a running fashion. The subcutaneous tissues were irrigated and found to be hemostatic. These were reapplied approximated using a running suture of 2-0 chromic. The skin was closed with a subcuticular suture of 4-0 Monocryl. The skin was then injected with dilute methyl prednisone to decrease keloiding. The procedure was then terminated. The patient tolerated the procedure well, sponge, lap, instrument and needle counts were correct x 2. The patient went to the recovery area awake and in stable condition. Pathology was none. Complications were none. Fluids: crystalloid Fluid amount (mL): 1,400 Urine output (mL): 175 Specimen: none Implants: None Estimated blood loss (ml): 400 Findings: Liveborn male, OA, no nuchal cord, no meconium. Apgars were 7 and 9. Weight was 3570 g corresponding to 7 pounds 14 ounces. The placenta was complete, spontaneous, and grossly normal. Patient's uterus, tubes, and ovaries were grossly normal. She had very little scar tissue present in her abdomen. She did have a thin lower uterine segment with no evidence of a window. Complications: none Surgical staff Operation Date: 06/21/25 07:45 Case Staff CANINE DEPUTY: Alo Yadav RNchemical operator: Brad Clark Diagnosis Discharge Diagnosis (1) Supervision of high risk in third trimester: Status: Acute (2) Previous delivery affecting , antepartum: Status: Acute Problem details: Previous x 3, consented for a repeat low-transverse section. All questions answered and all consents were signed. Patient declines tubal ligation. Problem List Completed Was Problem List Reviewed/Reconciled?: Yes
[2025-06-21] MEDS: OXYTOCIN in NS 20 units 20 UNIT/1,000 ML BAG 125 UNIT IV (13:29)
[2025-06-21] MEDS: PROMETHAZINE INJ 12.5 MG in SODIUM CHLORIDE 0.9% 50 ML 2.5 MG IV (14:22)
[2025-06-21] MEDS: ACETAMINOPHEN 325 MG TABLET 650 MG PO (22:52)
[2025-06-22] MEDS: OXYTOCIN in NS 20 units 20 UNIT/1,000 ML BAG 125 UNIT IV (00:14)
[2025-06-22] MEDS: KETOROLAC INJ 30 MG/ML VIAL IVP ×2 (00:19→06:03)
[2025-06-22 00:31] VITALS: BP 110/65; PULSE 62; RESP 17; TEMP 36.7; O2SAT 98
[2025-06-22 03:58] VITALS: BP 106/64; PULSE 64; RESP 16; TEMP 36.6; O2SAT 96
[2025-06-22 05:24] LABS: Basophils # (Auto) 0.0 Thou/mm3 (0.0-0.2); Basophils % (Auto) 0 % (0-2.5); Eosinophils # (Auto) 0.0 Thou/mm3 (0.0-0.5); Eosinophils % (Auto) 0 % (0-10); Hematocrit 31.8 % (36.0-46.0); Hemoglobin 10.9 g/dL (12.0-16.0); Immature Granulocytes Auto 0.02 Thou/mm3 (0.00-0.00); Lymphocytes # (Auto) 1.6 Thou/mm3 (1.0-4.8); Lymphocytes % (Auto) 19 % (10-50); Mean Corpuscular HGB Conc 34.3 g/dl (31.0-37.0); Mean Corpuscular Hemoglobin 32.4 pg (25.0-35.0); Mean Corpuscular Volume 95 fL (80-100); Monocytes # (Auto) 0.6 Thou/mm3 (0.0-0.8); Monocytes % (Auto) 7 % (0-12); Neutrophils # (Auto) 6.3 Thou/mm3 (1.8-7.7); Neutrophils % (Auto) 74 % (37-80); Nucleated Red Blood Cell # 0.00 Thou/mm3 (0.00-0.00); Nucleated Red Blood Cell % 0 /100 WBC (0); Platelet Count 224 Thou/mm3 (140-440); RDW Standard Deviation 48.8 fL (36.4-46.3); Red Blood Count 3.36 Miln/mm3 (4.00-5.20); White Blood Count 8.6 Thou/mm3 (3.6-11.0)
[2025-06-22 07:25] VITALS: BP 116/71; PULSE 60; RESP 16; TEMP 36.7; O2SAT 98
[2025-06-22] MEDS: DOCUSATE SOD 100 MG CAPSULE PO (08:16)
--- NOTE | 2025-06-22 10:37 | ESDS_ITS ---
DS: Providers Provider Date of admission: 06/21/25 05:39 Primary care physician: Physician No Primary/Family Admitting Provider: Vane Florian MD ([facility]) Attending Provider on Admission: Vane Florian MD ([facility] Clinic) Consults: 06/21/25 12:58 Referral Routine Comment: Attending Provider on DC: Cristine Jay MD Discharging Provider: Cristine Jay MD Anticipated date of discharge: 06/22/25 DS: Diagnosis Discharge Diagnosis (1) Cholestasis during in second trimester: Status: Acute (2) Supervision of high risk in third trimester: Status: Acute (3) Previous delivery affecting , antepartum: Status: Acute (4) delivery delivered: Status: Acute Problem List Completed Was Problem List Reviewed/Reconciled?: Yes Summary/Hosp Course Brief History: Patient is a 30-year-old -0-0-3 history of x 3 with all care uncomplicated with Dr. Bri Florian at the [facility] OB clinic. She presents today for scheduled elective repeat section. Of note patient declines tubal ligation. Her will pursue vasectomy. She is 38-4/7 weeks. The section is being done between 38 and 39 weeks for a history of section x 3. On the day of admission, she reports good movement, she denies vaginal bleeding or loss of fluids. She reports some irregular nonpainful uterine contractions. Peripartum Data Delivery Method: Low Transverse Episiotomy Description: None Procedures: Procedures Operation Date: 06/21/25 07:45 Actual Procedure Side Surgeon p in OB Vane Florian (OB Clinic)MD complications: none Status at Discharge Cognitive/behavioral status at discharge: Patient has no/ complaints Headache no Blurry vision no Chest pain no Palpitations no Shortness of breath no Nausea or vomiting or constipation no Back pain no Dysuria no Dizziness no calf pain no She is voiding spontaneously after catheter removal yes Passing flatus yes Lochia minimal yes Functional status at discharge: independent ambulation Overall status at discharge: patient is progressing back to baseline Time Spent with Patient Time attestation: Total time spent providing and/or coordinating discharge services: Exam Vital Signs Temp Pulse Resp BP Pulse Ox O2 Del Method 98.0 F 60 16 116/71 98 Room Air 06/22/25 07:25 06/22/25 07:25 06/22/25 07:25 06/22/25 07:25 06/22/25 07:25 06/22/25 07:25 Narrative Exam alert x3 chest clear CVS RRR NO thromegaly Uterus is nontender Uterus is firm Just below the umbilicus Bowel sounds present Abdomen soft no hernias noted/no CVAT Incision CDI No drainage Appropriately tender No calf tenderness Edema mild Routine Psychiatric Exam Psychiatric: Present normal affect, normal thought process, cooperative, good insight and good judgment Discharge Plan Plan Patient Disposition: HOME (Self Care) Disposition Comment: patient would like to go home today / she is comfortable and feels good Prescriptions/Referrals Prescriptions/Med Rec: New acetaminophen 325 mg Tablet 650 mg PO Q6HR PRN (Reason: Patient rated pain of 3) Qty: 30 0RF hydrocodone-acetaminophen 5-325 mg Tablet 1 tab PO Q6HR MDD 3 PRN (Reason: Patient rated pain 9 to 10) Qty: 7 0RF magnesium hydroxide [Milk of Magnesia] 400 mg/5 mL Suspension 30 ml PO PRNMRX1 PRN (Reason: Constipation) Qty: 355 0RF docusate sodium 100 mg Capsule 100 mg PO QDAY Qty: 10 0RF Boostrix Tdap 2.5-8-5 Lf-mcg-Lf/0.5mL Syringe 0.5 ml IMi X1 PRN (Reason: See Comments) Qty: 0.5 0RF M-M-R II (PF) 1,000-12,500 TCID50/0.5 mL Recon Soln 0.5 ml SCi X1 PRN (Reason: if non-immune or equivocal) Qty: 1 0RF Continued PNV no.068-kvti-felnt acid 28 mg iron- 800 mcg tablet 1 tab PO DAILY Qty: 90 2RF Referrals: No Primary/Family,Physician [Primary Care Provider] Patient/Caregiver Discharge Instructions Discharge Activity: activity as tolerated Other Discharge Activity Instructions:: pelvic rest x 6 weeks Other Discharge Diet Instructions: regular diet see her physician or Ob in 2 weeks at clinic at [facility] Education Materials: C Section Dc Print Language: Faroese Activity Restrictions/Additional Instructions: regular diet see her physician or Ob in 2 weeks at clinic at [facility] Stand Alone Forms: Lu Award Info., Patient Portal Info Letter, DC from Surgery Discharge Order Discharge Orders: Discharge (Routine); Ordered 06/22/25 Ordered By: Cristine Jay Planned Discharge Date 06/22/25
[2025-06-22 16:00] VITALS: BP 113/72; PULSE 68; RESP 16; TEMP 36.7; O2SAT 99
== END 2025-06-22 18:36 | disposition home or self-care (01) | DRG 788 ==
LOC: S4SX 09:39 → S4NX 09:56
PROVIDERS: Admitting Provider Obstetrics & Gynecology; Visit Provider Obstetrics & Gynecology
PROC: 10D00Z1 Extraction of Products of Conception, Low, Open Approach (ICD-10-PCS; CPT 59514; principal; 2025-06-21 07:30)
DX: O34.211 Maternal care for low transverse scar from previous cesarean delivery (principal); Z3A.38 38 weeks gestation of pregnancy; Z37.0 Single live birth
CPT/HCPCS: 36415; 85025; 86780; 86850; 86900; 86901; J0689; J1010; J1100; J1885; J2274; J2371; J2405; J2550; J2590; J3490; A9270; J2270

== ENCOUNTER 2025-08-05 15:20 | Outpatient (AMB) | payer BC, SELFPAY ==
[2025-08-05 15:34] VITALS: BP 131/83; PULSE 72; RESP 18; TEMP 36.6; O2SAT 98; BMI 30.2
--- NOTE | 2025-08-05 15:34 | AMBOBPPN_ITS ---
Vital Signs 08/05/25 15:34 Height 1.57 m Height Method Stated Weight 74.559 kg Weight Measurement Method Standing Scale BMI 30.2 BP 131/83 H Blood Pressure Source Automatic Cuff Blood Pressure Location Right Upper Arm Position Sitting Respiration 18 Pulse 72 Pulse Source Monitor Temp 97.8 F Temp Source Temporal Artery Scan Pulse Oximetry (%) 98 Oxygen Delivery Method Room Air Allergies/Home Meds Allergies & Medications Allergies No Known Allergies Allergy (Verified 08/12/25 12:05) Medication Reconciliation sertraline 50 mg tablet (Zoloft) 50 mg PO Q24H #30 tabs 08/05/25 [Rx Confirmed 08/12/25] sertraline 25 mg tablet (Zoloft) 25 mg PO QDAY #30 tabs 08/12/25 [Rx] Intake Visit Data Collection New Patient or Established: Established Patient (seen at [facility] within 3 years) Reason for Visit:: Seen by Clinical Staff ONLY (RN/MA): No Certified Ethical Hacker Required: No Do You Feel Safe at Home: Yes Authorities Contacted: N/A PCP or OBGYN visit in last 3 months: Yes Date of Last PCP or OBGYN visit: 07/04/25 Hx Now: No Pain Present Currently: Yes Pain Location: Back Pain Scale Used: Licona-Bernal/Numerical Pain scale:: 7 Smoking Status Smoking Status: Never smoker Immunizations Flu Vaccine in the Last 12 Months: No Flu Vaccine Exclusion Criteria: Refused by Patient and No 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 Past Medical History: No Hx Neurological Disorders, No Hx Hypothyroidism, No Hx Hyperthyroidism, No Hx Cardiac Disorders, No Hx Hypertension, No Hx Cancer, No Hx Blood Disorders, No Hx Anemia, No Hx Gastrointestinal Disorders, No Hx Renal Disease, No Hx Deep Vein Thrombosis, No Hx Diabetes Mellitus Type 1, No Hx Diabetes Mellitus Type 2 and No Hx Polycystic Ovarian Syndrome Questionnaires Covid-19 Vaccine Questionnaire Has patient been vacinated for Covid-19 Have you been vacinated for Covid-19: No Social History Living Situation History Marital Status: Lives With: Family Housing: House Housing Other:: Off work on disability. 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 at Home: Yes EPDS - PP Depression Screening [place] Pospartum Depression Screen I have been able to laugh and see the funny side of things: (2) Definitely not so much now I have looked forward with enjoyment to things: (3) Hardly at all I have blamed myself unnecessarily when things went wrong: (3) Yes, most of the time I have been anxious or worried for no good reason: (3) Yes, very often I have felt scared or panicky for no very good reason: (3) Yes, quite a lot Things have been getting on top of me: (3) Yes, most of the time I haven't been able to cope at all I have been so unhappy that I have had difficulty sleeping: (3) Yes, most of the time I have felt sad or miserable: (2) Yes, quite often I have been so unhappy that I have been crying: (3) Yes, most of the time The thought of harming myself has occurred to me: (1) Hardly ever EPDS completed yes Care OB Visit Log OB Flowsheet Initial Weight: 75.5 kg Date -?-?-?-?-?-?-?-?-?-?-?-?- EGA Weight BP Alb Glu CTX Pres Fundal ht FHR Mov Dilation Station Effacement Hx Notes Visit Note 12/14/24 -?-?-?-?-?-?-?-?-?-?-?-?- 11w 4d 75.013 kg (-487.162 g) 119/82 12 absent Offered NIPT will have to authorize Offered NIPT will have to au adriize first trimester labs drawn with Dr. Joseph in [place] not available at visit. Offered NIPT will have to au thorize first trimester labs drawn with Dr. Rojas in [place] not available at visit. 01/14/25 -?-?-?-?-?-?-?-?-?-?-?-?- 16w 0d 75.807 kg (+306.625 g) 111/73 111/ 14 absent No vaginal bleeding patient is on pelvic rest at home. Desires NIPT. 02/13/25 -?-?-?-?-?-?-?-?-?-?-?-?- 20w 2d 77.734 kg (+2234.392 g) 115/75 20 active No vaginal bleeding occasional back pain and pressure. Patient is off work on modified bedrest. NIPT was not covered by insurance. Patient is awaiting level [address] Macario 03/18/25 -?-?-?-?-?-?-?-?-?-?-?-?- 25w 0d 79.605 kg (+4105.461 g) 112/62 25 active Positive movement no contractions no loss of fluids. Level 2 ultra sound scheduled 26 March. 04/08/25 -?-?-?-?-?-?-?-?-?-?-?-?- 28w 0d 82.27 kg (+6770.316 g) 109/69 absent 32 active +FM, No UCs, No LOF Level II US WNL on chart, GCT ordered 04/19/25 -?-?-?-?-?-?-?-?-?-?-?-?- 29w 4d 82.554 kg (+7053.811 g) 115/69 absent 30 active Good movement. No contractio ns no bleeding no loss of fluids Failed glucose challenge test at 163. Ordered 3-hour GTT at [facility] in [place]. 04/30/25 -?-?-?-?-?-?-?-?-?-?-?-?- 31w 1d 82.667 kg (+7167.209 g) 111/71 absent 32 active Good movement no contractions no loss of fluids Has not done 3-hour test yet. Sees Dr. Macario in 1 week for follow-up. 05/20/25 -?-?-?-?-?-?-?-?-?-?-?-?- 34w 0d 83.688 kg (+8187.792 g) 118/72 absent 34 136 active Good movement no contractions no loss of fluids 06/05/25 -?-?-?-?-?-?-?-?-?-?-?-?- 36w 2d 85.502 kg (+10.002 kg) 116/72 occasional 36 156 active Good movement no contractions or loss of fluids G roup B strep done 06/14/25 -?-?-?-?-?-?-?-?-?-?-?-?- 37w 4d 86.353 kg (+10.853 kg) 115/76 absent 37 151 active good movements GBS negative has previous 3 c section sna dscheduled for repeat LTCS with Dr Florian on 06/21/2025 / No BTL consent / spouse vasectomy 07/04/25 -?-?-?-?-?-?-?-?-?-?-?-?- 40w 3d 76.43 kg (+930.314 g) 119/76 119/ PATRIC Calculator Estimated Delivery Date Method Current WG Current Estimate 07/01/25 Ultrasound #1 46w 3d Other Estimates 07/01/25 LMP (Certain) 46w 3d Expected Delivery Route/Plan Patient has history of x 2. For repeat at 38-39 weeks Spouse to get vasectomy. scheduled 06/21/2025 0730 Specific Issue/Plans NIPT not covered. Level 2 ultrasound ordered. Notes Visit Date: 06/05/25 Last Updated by: Vane Florian ([facility])MD Encouraged influenza RSV and Tdap vaccines. Visit Date: 05/20/25 Last Updated by: Vane Florian ([facility])MD Three hour glucose normal 05/02/2025 fasting glucose 82\153\118\72 hemoglobin 11.9 RPR negative . The patient had a follow-up ultrasound with Dr. Macario 05/07/2025 which is on the chart :baby was vertex presentation EDC by that ultrasound 07/03/2025 EFW 1930 g 4 pounds 4 ounces in the 42nd percentile FENG 10.8 Visit Date: 04/30/25 Last Updated by: Vane Florian ([facility])MD Declines BTL. Visit Date: 04/19/25 Last Updated by: Vane Florian ([facility])MD Failed 1 hour glucose. 163. Ordered 3-hour GTT with CBC and RPR Visit Date: 04/08/25 Last Updated by: Vane Florian ([facility])MD Level II US done and WNL. Visit Date: 03/18/25 Last Updated by: Vane Florian ([facility])MD Have records from [facility]. Reviewed and on chart. All were done in October 2024.. O+ /antibody screen negative /cystic fibrosis screening negative/ TB test negative/ hemoglobin 13/ hep C negative/ hepatitis B surface antigen negative /rubella nonimmune RPR nonreactive /HIV negative/ hemoglobin A1c 5.2/1-hour glucose elevated /3-hour glucose normal/ GC chlamydia and trichomonas negative/drug screen negative Visit Date: 02/13/25 Last Updated by: Vane Florian ([facility])MD Still no notes from [facility] with Dr. Zurita. 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 She has not been called yet for level 2 ultrasound I will order this. Visit Date: 01/14/25 Last Updated by: Vane Florian ([facility])MD Patient will call on NIPT. Need labs from Dr. Zurita in [place]. Will authorize for level 2 ultrasound for history of x 4. Visit Date: 12/14/24 Last Updated by: Vane Florian ([facility])MD Offered NIPT. Will authorize. Patient is having some back pain and spotting. Ultrasound transvaginal performed today. Labs from Dr. Rojas in [place] pending. Not available at the time of visit. HPI Interval History: The patient is a 30-year-old -0-0-3 EDC 07/01/2025. 38-4/7 weeks. All care uncomplicated with Dr. Bri Florian. She presented for a scheduled elective repeat section. She declined tubal ligation. Pre-Op diagnosis: 1. IUP 38-4/7 weeks 2. 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 Narrative Review of Systems: depiression and anxiety Exam Narrative Physical exam: alert x3 chest clear CVS RRR NO thyromegaly Uterus is involuted Bowel sounds present Abdomen soft no hernias noted/no CVAT Incision CDI No drainage Appropriately tender No calf tenderness Edema none Office Procedures [facility] Clinic LOC & Office Proc's Nursing/Assessment Patient Status: Established Patient OB Clinic Nursing Assessment: Medication Reconciliation, Update PMH in EMR and Vital Signs OB Clinic Coordination of Care: Complex Care and Chronic Disease 1-5, Education Complex Pt/Fam, Consent,records obtained, informed consent, Lab and Imaging orders, Results/Orders obtained and Staff clarify orders Established Patient Charge Established Patient Point Assignment: 110 Established Patient Point Charge: EP Level 3 (80-115) Antepartum Initial or Follow-up Antepartum Follow up Visit: Yes Assessment & Plan Diagnosis / Problem List (1) delivery delivered: Status: Acute (2) depression: Status: Acute Assessment and Plan: The patient is a 30-year-old -0-0-3 EDC 07/01/2025. 38-4/7 weeks. All care uncomplicated with Dr. Bri Florian. She presented for a scheduled elective repeat section. She declined tubal ligation. Pre-Op diagnosis: 1. IUP 38-4/7 weeks 2. Previous x 3 repeat LTCS done 06/21/[address] Florian patient has an EPDS of 26 and feels like crying and anxious / Not suicidal or homicidal though plan to extend disability for 1 month start on zoloft 50 mgm po q day and telephone follow up in 1 week Plan start on zoloft and follow up in 1 week / To go to ED f feels like harming herself or anybody else She will be seeing a new PCP in [place] on 08/14/2025 meanwhile will refer for mental health also extend disability x 1 month Care Reviewed delivery summary and any complications: Yes Perineal / incision healing noted: Yes Screened for depression: Yes Depression counseling provided: Yes Discussed family planning & contraception: No Counseling on safe resumption of sexual activity: Yes Counseling on gradual excercise: Yes Discussed and concerns (describe), provided support: Yes Counseled on good nutrition, hydration, and self care: Yes Reviewed vaccine status: Yes Chronic & current problems reconciled on problem list: Yes Additional follow up plans: 1 week on telephone / ED precautions given Follow up: mental health concerns Additional counseling & anticipatory guidance provided: 1 week
== END 2025-08-05 15:47 | disposition home or self-care (01) ==
LOC: HODSOBC 15:20
PROVIDERS: Supervising Provider Obstetrics & Gynecology; Visit Provider Obstetrics & Gynecology
DX: Z39.2 Encounter for routine postpartum follow-up (principal); O99.345 Other mental disorders complicating the puerperium; F53.0 Postpartum depression; Z39.1 Encounter for care and examination of lactating mother
CPT/HCPCS: 99213; Z1034; G0463

== ENCOUNTER 2025-08-12 11:53 | Outpatient (AMB) | payer BC, SELFPAY ==
--- NOTE | 2025-08-12 12:05 | AMBOBPPN_ITS ---
Allergies/Home Meds Allergies & Medications Allergies No Known Allergies Allergy (Verified 08/12/25 12:05) Medication Reconciliation sertraline 50 mg tablet (Zoloft) 50 mg PO Q24H #30 tabs 08/05/25 [Rx Confirmed 08/12/25] Intake Visit Data Collection New Patient or Established: Established Patient (seen at [facility] within 3 years) Reason for Visit:: Seen by Clinical Staff ONLY (RN/MA): No Spice Blender Required: No Do You Feel Safe at Home: Yes Authorities Contacted: N/A PCP or OBGYN visit in last 3 months: Yes Date of Last PCP or OBGYN visit: 07/04/25 Hx Now: No Are you currently on any form of Control: No Pain Present Currently: Yes Pain Location: Back Pain Scale Used: Licona-Bernal/Numerical Pain scale:: 8 Smoking Status Smoking Status: Never smoker Immunizations Flu Vaccine in the Last 12 Months: No Flu Vaccine Exclusion Criteria: No Exclusion Criteria For Telemed visit only Telemed Video/Phone Visit: Yes Verbal consent obtained for Telemed visit?: Yes Verbal Consent witness name: MIGUE RUIZ MA Telemed Video/Phone visit w/Clinical Staff: 5-10 min 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: Past Medical History Past Medical History: No Hx Neurological Disorders, No Hx Hypothyroidism, No Hx Hyperthyroidism, No Hx Cardiac Disorders, No Hx Hypertension, No Hx Cancer, No Hx Blood Disorders, No Hx Anemia, No Hx Gastrointestinal Disorders, No Hx Renal Disease, No Hx Deep Vein Thrombosis, No Hx Diabetes Mellitus Type 1, No Hx Diabetes Mellitus Type 2 and No Hx Polycystic Ovarian Syndrome Questionnaires Covid-19 Vaccine Questionnaire Has patient been vacinated for Covid-19 Have you been vacinated for Covid-19: No Social History Living Situation History Marital Status: Lives With: Family Housing: House Housing Other:: Off work on disability. 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 at Home: Yes EPDS - PP Depression Screening [place] Pospartum Depression Screen I have been able to laugh and see the funny side of things: (2) Definitely not so much now I have looked forward with enjoyment to things: (2) Definitely less than I used to I have blamed myself unnecessarily when things went wrong: (2) Yes, some of the time I have been anxious or worried for no good reason: (3) Yes, very often I have felt scared or panicky for no very good reason: (3) Yes, quite a lot Things have been getting on top of me: (3) Yes, most of the time I haven't been able to cope at all I have been so unhappy that I have had difficulty sleeping: (2) Yes, sometimes I have felt sad or miserable: (2) Yes, quite often I have been so unhappy that I have been crying: (2) Yes, quite often The thought of harming myself has occurred to me: (1) Hardly ever Total Score: EPDS Score: Referral is indicated for score of 9 or more, suicidal, or if provider believes patient is depressed regardless of score.: 22 EPDS completed yes Care OB Visit Log OB Flowsheet Initial Weight: 75.5 kg Date -?-?-?-?-?-?-?-?-?-?-?-?- EGA Weight BP Alb Glu CTX Pres Fundal ht FHR Mov Dilation Station Effacement Hx Notes Visit Note 12/14/24 -?-?-?-?-?-?-?-?-?-?-?-?- 11w 4d 75.013 kg (-487.162 g) 119/82 12 absent Offered NIPT will have to authorize Offered NIPT will have to au faheem first trimester labs drawn with Dr. Joseph in [place] not available at visit. Offered NIPT will have to elizabeth rushize first trimester labs drawn with Dr. Rojas in [place] not available at visit. 01/14/25 -?-?-?-?-?-?-?-?-?-?-?-?- 16w 0d 75.807 kg (+306.625 g) 111/73 111/73 14 absent No vaginal bleeding patient is on pelvic rest at home. Desires NIPT. 02/13/25 -?-?-?-?-?-?-?-?-?-?-?-?- 20w 2d 77.734 kg (+2234.392 g) 115/75 20 active No vaginal bleeding occasional back pain and pressure. Patient is off work on modified bedrest. NIPT was not covered by insurance. Patient is awaiting level [address] Macario 03/18/25 -?-?-?-?-?-?-?-?-?-?-?-?- 25w 0d 79.605 kg (+4105.461 g) 112/62 25 active Positive movement no contractions no loss of fluids. Level 2 ultra sound scheduled 26 March. 04/08/25 -?-?-?-?-?-?-?-?-?-?-?-?- 28w 0d 82.27 kg (+6770.316 g) 109/69 absent 32 active +FM, No UCs, No LOF Level II US WNL on chart, GCT ordered 04/19/25 -?-?-?-?-?-?-?-?-?-?-?-?- 29w 4d 82.554 kg (+7053.811 g) 115/69 absent 30 active Good movement. No contractions no bleeding no loss of fluids Failed glucose challenge test at 163. Ordered 3-hour GTT at [facility] in [place]. 04/30/25 -?-?-?-?-?-?-?-?-?-?-?-?- 31w 1d 82.667 kg (+7167.209 g) 111/71 absent 32 active Good movement no contractions no loss of fluids Has not done 3 -hour test yet. Sees Dr. Macario in 1 week for follow-up. 05/20/25 -?-?-?-?-?-?-?-?-?-?-?-?- 34w 0d 83.688 kg (+8187.792 g) 118/72 06/05/25 -?-?-?-?-?-?-?-?-?-?-?-?- 36w 2d 85.502 kg (+10.002 kg) 116/72 06/14/25 -?-?-?-?-?-?-?-?-?-?-?-?- 37w 4d 86.353 kg (+10.853 kg) 115/76 07/04/25 -?-?-?-?-?-?-?-?-?-?-?-?- 40w 3d 76.43 kg (+930.314 g) 119/76 119/76 PATRIC Calculator Estimated Delivery Date Method Current WG Current Estimate 07/01/25 Ultrasound #1 46w 0d Other Estimates 07/01/25 LMP (Certain) 46w 0d Expected Delivery Route/Plan Patient has history of x 2. For repeat at 38-39 weeks Spouse to get vasectomy. scheduled 06/21/2025 0730 Specific Issue/Plans NIPT not covered. Level 2 ultrasound ordered. Notes Visit Date: 06/05/25 Last Updated by: Vane Florian ([facility])MD Encouraged influenza RSV and Tdap vaccines. Visit Date: 05/20/25 Last Updated by: Vane Florian ([facility])MD Three hour glucose normal 05/02/2025 fasting glucose 82\153\118\72 hemoglobin 11.9 RPR negative . The patient had a follow-up ultrasound with Dr. Macario 05/07/2025 which is on the chart :baby was vertex presentation EDC by that ultrasound 07/03/2025 EFW 1930 g 4 pounds 4 ounces in the 42nd percentile FENG 10.8 Visit Date: 04/30/25 Last Updated by: Vane Florian ([facility])MD Declines BTL. Visit Date: 04/19/25 Last Updated by: Vane Florian ([facility])MD Failed 1 hour glucose. 163. Ordered 3-hour GTT with CBC and RPR Visit Date: 04/08/25 Last Updated by: Vane Florian ([facility])MD Level II US done and WNL. Visit Date: 03/18/25 Last Updated by: Vane Florian ([facility])MD Have records from [facility]. Reviewed and on chart. All were done in October 2024.. O+ /antibody screen negative /cystic fibrosis screening negative/ TB test negative/ hemoglobin 13/ hep C negative/ hepatitis B surface antigen negative /rubella nonimmune RPR nonreactive /HIV negative/ hemoglobin A1c 5.2/1-hour glucose elevated /3-hour glucose normal/ GC chlamydia and trichomonas negative/drug screen negative Visit Date: 02/13/25 Last Updated by: Vane Florian ([facility])MD Still no notes from [facility] with Dr. Zurita. 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 She has not been called yet for level 2 ultrasound I will order this. Visit Date: 01/14/25 Last Updated by: Vane Florian ([facility])MD Patient will call on NIPT. Need labs from Dr. Zurita in [place]. Will authorize for level 2 ultrasound for history of x 4. Visit Date: 12/14/24 Last Updated by: Vane Florian ([facility])MD Offered NIPT. Will authorize. Patient is having some back pain and spotting. Ultrasound transvaginal performed today. Labs from Dr. Rojas in [place] pending. Not available at the time of visit. HPI Interval History: The patient is a 30-year-old -0-0-3 EDC 07/01/2025. 38-4/7 weeks. All care uncomplicated with Dr. Bri Florian. She presented for a scheduled elective repeat section. She declined tubal ligation. Pre-Op diagnosis: 1. IUP 38-4/7 weeks 2. Previous x 3 repeat LTCS done 06/21/[address] Florian patient has an EPDS of 26 and feels like crying and anxious / Not suicidal or homicidal though plan to extend disability for 1 month / she is feeling better and is only taking Zoloft 2 times a week/ recommend to take every day and will decrease the dose to 25 mgm po q day and follow up in early Aug 2025 she sounds happier start on zoloft 50 mgm po q day and telephone follow up in 1 week Was or delivery considered high risk: Yes Was or delivery considered high risk: Yes Delivery type: Was labor induced: no Gestational age at delivery (weeks): 38 Delivery date: 06/21/25 Delivering provider: Dr Florian Office Procedures OBC Clinic LOC & Office Proc's Nursing/Assessment Patient Status: Established Patient OB Clinic Nursing Assessment: Medication Reconciliation and Update PMH in EMR OB Clinic Coordination of Care: Complex Care and Chronic Disease 1-5, Education Complex Pt/Fam, Consent,records obtained, informed consent, Lab and Imaging orders, Results/Orders obtained and Staff clarify orders Established Patient Charge Established Patient Point Assignment: 95 Established Patient Point Charge: EP Level 3 (80-115) Antepartum Initial or Follow-up Antepartum Follow up Visit: Yes Assessment & Plan Diagnosis / Problem List (1) depression: Status: Acute (2) delivery delivered: Status: Acute Plan follow up in aug 2025 / take zoloft 25 mgm po q day / ED precautions as needed Care Perineal / incision healing noted: No Follow up: mental health concerns Additional counseling & anticipatory guidance provided: follow up early aug 2025
== END 2025-08-12 12:18 | disposition home or self-care (01) ==
LOC: HODSOBC 11:53
PROVIDERS: Supervising Provider Obstetrics & Gynecology; Visit Provider Obstetrics & Gynecology
DX: Z39.2 Encounter for routine postpartum follow-up (principal); O99.345 Other mental disorders complicating the puerperium; F53.0 Postpartum depression
CPT/HCPCS: 99213; Z1034; G0463